=== PATIENT | female | born 1980 | race Caucasian/White ===

== ENCOUNTER 2019-02-10 19:38 | Emergency (ER) | payer MEDICAID, SELFPAY ==
[2019-02-10 19:39] VITALS: BP 131/81; PULSE 78; RESP 16; TEMP 37.2; O2SAT 98; BMI 28.8
--- NOTE | 2019-02-10 20:45 | ED.VISSUMM ---
- ER Visit Summary Date of Service: 02/10/19 Chief Complaint: Cat bites and scratches History of Present Illness: The patient is a 38 F who states that her cat went crazy when it saw a dog outside. She states that she tried to good control of it and it bit her and scratched her numerous time on the left arm forearm and hand. She notes particularly bad cat bite the anterior aspect of the mid forearm. Tetanus is unknown. Shots are up-to-date Physical Examination: Afebrile vital signs stable Gen: Well-nourished well-developed Head: Normocephalic atraumatic Eyes: Perrl EOMI ENT: TMs clear no rhinorrhea moist mucous membranes Neck: Supple no lymphadenopathy no JVD nontender CVS: Regular rate rhythm no murmurs normal S1-S2 Respiratory: No distress clear to auscultation bilaterally chest nontender Abdomen: Soft nontender nondistended normal bowel sounds no masses Back: Nontender Extremity: There are numerous superficial scratches as well as some small bite clemons particularly on the anterior mid forearm. None of these are gaping. No active bleeding. Skin: Normal color no rash Neuro: alert orientated ?3 CN II-XII intact normal strength sensation reflexes gait cerebellar Psych: Normal affect normal mood Test Results: Forearm films demonstrated no obvious foreign body Emergency Department Course and Treatment: Tetanus was updated with Adaalessandro. Wounds were cleansed and dressed. Patient was advised of the high risk of infection and will place her on Augmentin. Return if worsening or concerns. Given the location of the injuries and the fact that none of them are gaping and the extremely high risk of infection I do not feel that it would be appropriate to suture them. Impression: 1. Multiple cat bites and scratches 2. Tetanus update This note was generated with [employer] dictation software. It may contain incorrect words, spelling, and punctuation that were not noted in review of the chart prior to signing ED Disposition - Plan for ED Patient: Disposition: Home or Assisted Living Instructions: ED Bite Cat Prescriptions: Amox/Clavulanate Tablet [Augmentin Tablet] 875 mg PO Q12H #10 tab Referrals: Naun Azeevdo MD [Primary Care Provider] - 1 Week if not improving
--- NOTE | 2019-02-10 20:46 | RAD_ITS ---
STUDY: X-RAY - LEFT RADIUS AND ULNA REASON FOR EXAM: Female, 38 years old. Pain TECHNIQUE: 2 view(s) of the forearm. COMPARISON: None. FINDINGS: There is no demonstrated soft tissue swelling. Normal visualized radius. Normal visualized ulna. RAD/Forearm 2 Views IMPRESSION: Normal x-ray examination of the radius and ulna. Electronically Signed: Adria La MD at 21:31 EDT , Service support ,
[2019-02-10] MEDS: Diphth,Pertuss(Acell),Tet Vac 0.5 ML Vial IM (21:19)
[2019-02-10] MEDS: Amox/Clavulanate 875 MG Tablet PO (21:20)
[2019-02-10 22:23] VITALS: PULSE 75; RESP 16
== END 2019-02-10 22:25 | disposition home or self-care (01) ==
PROVIDERS: Emergency Provider Emergency Medicine; Family Provider Family Medicine; PCP Family Medicine
DX: S50.872A Other superficial bite of left forearm, initial encounter (principal); S60.572A Other superficial bite of hand of left hand, initial encounter; S50.812A Abrasion of left forearm, initial encounter; S60.512A Abrasion of left hand, initial encounter; W55.01XA Bitten by cat, initial encounter; Y93.89 Activity, other specified; Y92.9 Unspecified place or not applicable
CPT/HCPCS: 73090; 90715; 99282; A4216

== ENCOUNTER 2025-06-15 19:18 | Emergency (ER) | payer MEDICAID, SELFPAY ==
[2025-06-15 19:19] VITALS: BP 137/93; PULSE 88; RESP 16; TEMP 37.2; O2SAT 100
[2025-06-15 19:37] VITALS: BP 151/113; PULSE 91; RESP 18; TEMP 36.8; O2SAT 100; BMI 29.1
--- OUTSIDE RECORDS SUMMARY | 2025-06-15 20:22 | XMS RPT_ITS | CCD ---
Author Organization [facility] Care Team Providers Care Technical Services Representative Name Role Phone Luca Azevedo MD Primary Care Provider [phone] David hCiang (Hist) Primary Care Provider Mikie Elaine Primary Care Provider Luca Azevedo MD Primary Care Provider Unavailable Primary Care Provider Unavailabl e Unavailable Primary Care Provider Unavailabl e Luca Azevedo MD Primary Care Provider HANNAH FRAGOSO Attending Unavailable HANNAH FRAGOSO Attending Unavailable SELF Referring Unavailable Allergies Allergy Classification Reported Allergen(s) Allergy Type Date of Onset Reaction(s) Facility (16 sources) Cefaclor; Translations: [CEFACLOR] Drug Allergy 01-03-2006 [facility] Work Phone: (6 sources) artificial strawberry flavoring [Other] Propensity to adverse reactions 02-10-2011 [facility] Medications Current Medications Medication Drug Class(es) Dates Sig (Normalized) Sig (Original) acetaminophen 325 mg oral tablet (1 source) Start: 12-21-2023 End: 12-28-2023 take 325-650 mg by mouth every four hours as needed acetaminophen (TYLENOL) 325 mg tablet Take 1-2 tablets by mouth every 4 hours as needed for pain for up to 7 days. 30 tablet 0 12/21/2023 12/28/2023 Active Comment on above: Take 1-2 tablets by mouth every 4 hours as needed for pain for up to 7 days. amoxicillin 500 mg oral capsule (3 sources) Penicillin-class Antibacterial Start: 05-24-2024 End: 06-03-2024 take 1 capsule by mouth twice daily amoxicillin (AMOXIL) 500 mg capsule Take 1 capsule by mouth two times a day for 10 days. 20 capsule 0 05/24/2024 06/03/2024 Active Start: 12-21-2023 End: 12-28-2023 take 1 tablet by mouth twice daily amoxicillin (AMOXIL) 875 mg tablet Take 1 tablet by mouth two times a day for 7 days. 14 tablet 0 12/21/2023 12/28/2023 Active Comment on above: Take 1 tablet by abby th two times a day for 7 days. metroNIDAZOLE 0.0075 mg/mg vaginal gel (4 sources) Nitroimidazole Antimicrobial Start: 05-07-2025 End: 05-12-2025 metroNIDAZOLE (METROGEL) 0.75 % (37.5mg/5 gram) vaginal gel Indications: Bacterial vaginosis Use 1 applicatorful vaginally daily at bedtime for 5 days. 70 g 05/07/2025 05/12/2025 Active Start: 02-04-2025 End: 02-11-2025 take 1 tablet by mouth twice daily metroNIDAZOLE (FLAGYL) 500 mg tablet Take 1 tablet by mouth two times a day for 7 days. 14 tablet 02/04/2025 02/11/2025 Start: 05-25-2024 End: 06-01-2024 take 1 tablet by mouth twice daily metroNIDAZOLE (FLAGYL) 500 mg tablet Take 1 tablet by mouth two times a day for 7 days. 14 tablet 0 05/25/2024 06/01/2024 Active Start: 08-14-2023 End: 08-21-2023 take 1 tablet by mouth twice daily metroNIDAZOLE (FLAGYL) 500 mg tablet Take 1 tablet by mouth two times a day for 7 days. 14 tablet 0 08/14/2023 08/21/2023 Active Comment on above: Take 1 tablet by abby th two times a day for 7 days. naproxen 500 mg oral tablet (2 sources) Nonsteroidal Anti-inflammatory Drug Start: 12-21-2023 End: 01-04-2024 take 1 tablet by mouth every twelve hours as needed naproxen (NAPROSYN) 500 mg tablet Take 1 tablet by mouth two times a day as needed for pain for up to 14 days. 28 tablet 0 12/21/2023 01/04/2024 Active Start: 08-10-2017 End: 01-14-2022 take 1 tablet by mouth twice daily as needed for pain naproxen (NAPROSYN) 500 mg tablet Indications: Acute pain of right knee Take 1 tablet by mouth twice daily as needed (for pain/inflammation). Take with food. 30 tablet 08/10/2017 01/14/2022 Discontinued (Course of therapy completed) Comment on above: Take 1 tablet by abby th two times a day as needed for pain for up to 14 days. nitrofurantoin, macrocrystals 25 mg / nitrofurantoin, monohydrate 75 mg oral capsule (2 sources) Nitrofuran Antibacterial Start: 05-24-20 End: 05-29-20 take 1 capsule by mouth twice daily nitrofurantoin monohydrate and macrocrystal (MACROBID) 100 mg capsule Take 1 capsule by mouth two times a day for 5 days. 10 capsule 0 05/24/2024 05/29/2024 Active Completed/Discontinued Medications Medication Drug Class(es) Dates Sig (Normalized) Sig (Original) albuterol 0.83 mg/ml inhalation solution (5 sources) beta2-Adrenergic Agonist Start: 08-16-2018 End: 08-11-2023 take 2.5 mg by inhalation every four hours as needed for wheezing and wheezing albuterol (PROVENTIL) 2.5 mg /3 mL (0.083 %) nebulizer solution Indications: Wheezing Use 3 mL via nebulizer every 4 hours as needed for Wheezing/Shortness of Breath. Use over 5-15minutes. 1 Package 08/16/2018 08/11/2023 Discontinued Comment on above: Use 3 mL via nebuliz er every 4 hours as needed for Wheezing/Shortness of Breath. Use over 5-15minutes. lidocaine hydrochloride 20 mg/ml mucous membrane topical solution (4 sources) Antiarrhythmic, Amide Local Anesthetic Start: 10-23-2023 End: 02-03-2025 LIDOCAINE VISCOUS 2 % solution Indications: Ulcers aphthous oral Take 5 mL by mouth four times a day as needed for pain. 100 mL 10/23/2023 02/03/2025 Discontinued (Course of therapy completed) Comment on above: Take 5 mL by mouth f our times a day as needed for pain. Problems Active Problems Problem Classification Problem Date Documented Date Episodic/Chronic Asthma (15 sources) Mild intermittent asthma; Translations: [Mild intermittent asthma, uncomplicated] Onset: 09-28-2010 09-28-2010 Chronic Disorders of teeth and jaw (1 source) Infection of tooth; Translations: [Periapical abscess without sinus] 12-21-2023 Episodic Genitourinary symptoms and ill-defined conditions (1 source) Scalding pain on urination ; Translations: [Dysuria] 05-24-2024 Episodic Immunizations and screening for infectious disease (5 sources) Patient encounter status; Translations: [Encounter for screening for human papillomavirus (HPV)] Onset: 05-06-2025 Episodic Inflammatory diseases of female pelvic organs (1 source) Bacterial vaginosis; Translations: [Acute vaginitis] 05-07-2025 Episodic Mood disorders (15 sources) Premenstrual dysphoric disorder; Translations: [Premenstrual dysphoric disorder] Onset: 10-10-2016 10-10-2016 Chronic Other female genital disorders (3 sources) Vaginal discharge; Translations: [Other specified noninflammatory disorders of vagina] Episodic Other female genital disorders (2 sources) Vaginal odor; Translations: [Other specified noninflammatory disorders of vagina] Episodic Other female genital disorders (1 source) Vaginal irritation; Translations: [Other specified noninflammatory disorders of vagina] 08-11-2023 Episodic Other female genital disorders (1 source) Other specified noninflammatory disorders of vagina; Translations: [Vaginal discharge] Onset: 05-06-2025 Episodic Other non-traumatic joint disorders (1 source) Ankle pain; Translations: [Pain in right ankle and joints of right foot] 01-14-2022 Episodic Other screening for suspected conditions (not mental disorders or infectious disease) (1 source) Cancer cervix screening status; Translations: [Encounter for screening for malignant neoplasm of cervix] Episodic Other upper respiratory infections (2 sources) Sore throat symptom; Translations: [Acute pharyngitis, unspecified] 05-24-2024 Episodic Past or Other Problems Problem Classification Problem Date Documented Date Episodic/Chronic Abdominal pain (16 sources) Pain in female pelvis; Translations: [Pelvic and perineal pain] Onset: 10-10-2016 Episodic Biliary tract disease (8 sources) Gallstone; Translations: [Calculus of gallbladder without cholecystitis without obstruction] Onset: 06-24-2011 Resolved: 10-10-2016 10-10-2016 Episodic Hemorrhoids (15 sources) Hemorrhoids; Translations: [Other hemorrhoids] Onset: 12-02-2019 12-02-2019 Episodic Other complications of (8 sources) Supervision of other high risk pregnancies, unspecified trimester; Translations: [Supervision of other high-risk ] Onset: 07-01-2010 Resolved: 10-10-2016 10-10-2016 Episodic Other complications of (8 sources) Mild hyperemesis gravidarum; Translations: [Mild hyperemesis gravidarum] Onset: 07-01-2010 Resolved: 10-10-2016 10-10-2016 Episodic Other and delivery including normal (8 sources) Normal ; Translations: [Encounter for supervision of other normal , unspecified trimester] Onset: 01-17-2006 Resolved: 07-01-2010 07-01-2010 Episodic Results Test Name Value Interpretation Reference Range Facil ity BACTERIAL VAGINOSIS NAATon 0 05-06-2025 Lactobacillus crispatus+gasseri+j ensenii + Gardnerella vaginalis + Atopobium vaginae rRNA TIGRE+probe Ql (Vag fld) Detected Abnormal Not detected [facility] Comment on above: Order Comment: Speci men Type: SWAB Ordering Facility: [facility] Address: [address] [place] [address] Performed By: #### Jona SINGH, [id number] #### [facility] CLIA [id number] [address] [place] [address] [place] C. trachomatis+N. gonorrhoea e DNA TIGRE+probe Ql (Unsp spec)on 05-06-2025 C. trachomatis rRNA TIGRE+probe Ql (Unsp spec) Not detected Normal Not detected [facility] Comment on above: Order Comment: Speci men Type: SWAB Ordering Facility: [facility] Address: [address] [place] [address] Performed By: #### Jona SINGH, [id number] #### [facility] CLIA [id number] [address] [place] [address] [place] N. gonorrhoeae rRNA TIGRE+probe Ql (Unsp spec) Not detected Normal Not detected [facility] Comment on above: Order Comment: Speci men Type: SWAB Ordering Facility: [facility] Address: [address] [place] [address] Performed By: #### B SAMANTHA, [id number] #### [facility] CLIA [id number] [address] [place] [address] [place] CATHY/TRICHOMONAS NAATon 0 05-06-2025 C. glabrata RNA TIGRE+probe Ql (Vag fld) Not detected Normal Not detected [facility] Comment on above: Order Comment: Speci men Type: SWAB Ordering Facility: [facility] Address: [address] [place] [address] Performed By: #### C VTV #### [facility] CLIA [id number] [address] [place] [address] [place] Cathy sp DNA TIGRE+probe Ql (Vag fld) Not detected Normal Not detected [facility] Comment on above: Order Comment: Speci men Type: SWAB Ordering Facility: [facility] Address: [address] [place] [address] Result Comment: The Cathy species group target includes C. albicans, C. tropicalis, C. parapsilosis, and C. dubliniensis. Performed By: #### C VTV #### [facility] CLIA [id number] [address] [place] [address] [place] T. vaginalis DNA TIGRE+probe Ql (Unsp spec) Not detected Normal Not detected [facility] Comment on above: Order Comment: Speci men Type: SWAB Ordering Facility: [facility] Address: [address] [place] [address] Performed By: #### C VTV #### [facility] CLIA [id number] [address] [place] [address] [place] CNOVon 05-06-2025 CNOV Office Visit (OBGYWM ) RATNA DAVIES ([id number]) 1980 F Date Time Provider Department 05/06/25 2:45 PM HANNAH FRAGOSO OBGYWM During your visit today, we recorded the following information about you: Blood pressure Weight Last Period 124/78 73.9 kg 04/06/25 Hannha Fragoso APRN.COMMUNICATIONS TECHNOLOGIST 05/06/2025 4:17 PM Signed Patient declined boiler blower. 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 Patient/authorized technical services representative agreed to proceed CHIEF COMPLAINT: The patient is a 44-year-old female presenting for evaluation of vaginal discharge and concerns about potential STIs. HPI: Vaginal Discharge and STI Concerns - Reports recurrent vaginal discharge for the past two weeks, which she believes is a recurrence of a previous infection treated in March. - Unable to complete the full course of antibiotics for the previous infection due to being kicked out of her house and not having access to her medication. - Engaging in sexual activity with multiple partners, expressing difficulty in maintaining celibacy. - Desires STI testing to ensure she is clean. Living Situation and Stress - Currently homeless and on a waiting list for emergency housing for the past two months. - Expresses significant stress and emotional distress due to her living situation, stating, I don't want to do this life anymore, it's not good. - Reports difficulty in accessing basic needs such as food and mcfp, relying on others for support. HISTORY: OB History Gravida3 Para3 Term3 Preterm0 AB0 Living3 SAB0 IAB0 Ectopic0 Multiple0 Live Births2 Manager Hris History LMP: 04/06/2025 (Exact Date), Having periods Age at Menarche: 18 Age at First : Age at Menopause: Manager Hris History Comments: Sexual Activity: Yes; Male; Essure Contraception: Surgical Menstrual Tracking History Flowsheet Row Office Visit from 02/03/2025 in OB/Gynecology Period Duration (Days) 5 Menstrual Flow Moderate PAST MEDICAL HISTORY Diagnosis Date Dysplastic colon polyp Intrinsic asthma, unspecified PAST SURGICAL HISTORY Procedure Laterality Date COLONOSCOPY FLX DX W/COLLJ SPEC WHEN PFRMD N/A 01/06/2017 COLONOSCOPY FLX DX W/COLLJ SPEC WHEN PFRMD 12/03/2019 Colonoscopy ESOPHAGOGASTRODUODENO SCOPY TRANSORAL DIAGNOSTIC N/A 01/06/2017 EUA 12/04/2019 HEMORRHOIDECTOMY 12/04/2019 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 09/04/09 Mirena LAPAROSCOPIC TUBAL LIGATION/RING/CLIP 05/04/11 LAPS SURG CHOLECYSTECTOMY W/CHOLANGIOGRAPHY 06/28/11 normal IOC FAMILY HISTORY Problem Relation Age of Onset Thyroid Mother Asthma Mother Alcohol/Drug Mother Alcohol/Drug Father Diabetes Father Psychiatry Father Blood Disease Father Hepatitis C Asthma Father Asthma Brother Alcohol abuse Brother Social History Tobacco Use Smoking status: Former Current packs/day: 0.00 Types: Cigarettes Quit date: 09/06/2003 Years since quittin.6 Smokeless tobacco: Never Vaping Use Vaping status: current everyday user Substances: Nicotine Substance Use Topics Alcohol use: Yes Comment: Seldom No current outpatient medications on file. No current facility-administered medications for this visit. ALLERGIES Allergen Reactions Ceclor [Cefaclor] Rash REVIEW OF SYSTEMS: Gastrointestinal: (+) abdominal cramping Genitourinary: (+) vaginal discharge Psychiatric: (+) emotional lability Objective SENSITIVE EXAM: The sensitive examination was discussed with the Patient or Patient's Authorized Numberer And Wirer. As applicable, any other physician, advance practice provider, medical student, or other health professional student that will be observing or involved in the sensitive examination for educational or training purposes was discussed with the Patient or Authorized Numberer And Wirer. The Patient or Authorized Numberer And Wirer has agreed to proceed with the sensitive examination. (Sensitive examination includes inspection and/or palpation of the breasts, pelvis, prostate and anorectal regions). PHYSICAL EXAM: BP 124/78 Wt 163 lb (73.9kg) LMP 04/06/2025 GENERAL: Pleasant; no acute distress PULMONARY: normal inspiratory effort : - PELVIC: external genitalia normal, normal Bartholin's glands, urethra, Wyboo's glands, no vulvar lesions, no cervical lesions, good vaginal support, physiologic discharge present, normal appearing perineal body and perianal region, cold speculum exam performed - Patient consent for exam received NEURO: alert and oriented x3 EXTREMITIES: normal Assessment AND Plan ASSESSMENT AND PLAN: 1. Screen for STD (sexually transmitted disease) (Z11.3) - Performed STD screening; results expected by tomorrow. 2. Vaginal discharge (N89.8) - R (more content not included)... Normal [facility] BACTERIAL VAGINOSIS NAATon 0 02-03-2025 Lactobacillus crispatus+gasseri+j ensenii + Gardnerella vaginalis + Atopobium vaginae rRNA TIGRE+probe Ql (Vag fld) Detected Abnormal Not detected [facility] Comment on above: Order Comment: Speci men Type: SWAB Ordering Facility: [facility] Address: [address] [place] [address] Performed By: #### C VTV, BVAMP #### [facility] CLIA [id number] [address] [place] [address] [place] C. trachomatis+N. gonorrhoea e DNA TIGRE+probe Ql (Unsp spec)on 02-03-2025 C. trachomatis rRNA TIGRE+probe Ql (Unsp spec) Not detected Normal Not detected [facility] Comment on above: Order Comment: Speci men Type: SWAB Ordering Facility: [facility] Address: [address] [place] [address] Performed By: #### 3 [id number] #### [facility] CLIA [id number] [address] [place] [address] [place] N. gonorrhoeae rRNA TIGRE+probe Ql (Unsp spec) Not detected Normal Not detected [facility] Comment on above: Order Comment: Speci men Type: SWAB Ordering Facility: [facility] Address: [address] [place] [address] Performed By: #### 3 [id number] #### [facility] CLIA [id number] [address] [place] [address] [place] CATHY/TRICHOMONAS NAATon 0 02-03-2025 C. glabrata RNA TIGRE+probe Ql (Vag fld) Not detected Normal Not detected [facility] Comment on above: Order Comment: Speci men Type: SWAB Ordering Facility: [facility] Address: [address] [place], [place] [id number] Performed By: #### C VTV, BVAMP #### [facility] CLIA [id number] [address] [place] [address] [place] Cathy sp DNA TIGRE+probe Ql (Vag fld) Not detected Normal Not detected [facility] Comment on above: Order Comment: Speci men Type: SWAB Ordering Facility: [facility] Address: [address] [place] [address] Result Comment: The Cathy species group target includes C. albicans, C. tropicalis, C. parapsilosis, and C. dubliniensis. Performed By: #### C VTV, BVAMP #### [facility] CLIA [id number] [address] [place] [address] [place] T. vaginalis DNA TIGRE+probe Ql (Unsp spec) Not detected Normal Not detected [facility] Comment on above: Order Comment: Speci men Type: SWAB Ordering Facility: [facility] Address: [address] [place] [address] Performed By: #### C VTV, BVAMP #### [facility] CLIA [id number] [address] [place] [address] [place] CNOVon 02-03-2025 CNOV Office Visit (OBGYWM ) RATNA DAVIES ([id number]) 1980 F Date Time Provider Department 02/03/25 11:30 AM HANNAH FRAGOSO OBGYWM During your visit today, we recorded the following information about you: Blood pressure Weight Last Period 128/70 69.8 kg 01/20/25 Hannah Fragoso APRN.COMMUNICATIONS TECHNOLOGIST 02/03/2025 12:09 PM Signed Patient declined boiler blower. Ratna Davies is a 44 year old female who presents for problem visit vaginal discharge, odor. HPI: pt states that she the discharge and odor for the past 1-2 wks. Denies any burning or irritation. OB History Gravida3 Para3 Term3 Preterm0 AB0 Living3 SAB0 IAB0 Ectopic0 Multiple0 Live Births2 Manager Hris History LMP: 01/20/2025 (Exact Date), Having periods Age at Menarche: 18 Age at First : Age at Menopause: Manager Hris History Comments: Sexual Activity: Yes; Male; Essure Contraception: Surgical Menstrual Tracking History Flowsheet Row Office Visit from 02/03/2025 in OB/Gynecology Period Duration (Days) 5 Menstrual Flow Moderate PAST MEDICAL HISTORY Diagnosis Date Dysplastic colon polyp Intrinsic asthma, unspecified PAST SURGICAL HISTORY Procedure Laterality Date COLONOSCOPY FLX DX W/COLLJ SPEC WHEN PFRMD N/A 01/06/2017 COLONOSCOPY FLX DX W/COLLJ SPEC WHEN PFRMD 12/03/2019 Colonoscopy ESOPHAGOGASTRODUODENO SCOPY TRANSORAL DIAGNOSTIC N/A 01/06/2017 EUA 12/04/2019 HEMORRHOIDECTOMY 12/04/2019 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 09/04/09 Mirena LAPAROSCOPIC TUBAL LIGATION/RING/CLIP 05/04/11 LAPS SURG CHOLECYSTECTOMY W/CHOLANGIOGRAPHY 06/28/11 normal C FAMILY HISTORY Problem Relation Age of Onset Thyroid Mother Asthma Mother Alcohol/Drug Mother Alcohol/Drug Father Diabetes Father Psychiatry Father Blood Disease Father Hepatitis C Asthma Father Asthma Brother Alcohol abuse Brother Social History Tobacco Use Smoking status: Former Current packs/day: 0.00 Types: Cigarettes Quit date: 09/06/2003 Years since quittin.4 Smokeless tobacco: Never Vaping Use Vaping status: current everyday user Substances: Nicotine Substance Use Topics Alcohol use: Yes Comment: Seldom Current Outpatient Medications Medication Sig LIDOCAINE VISCOUS 2 % solution Take 5 mL by mouth four times a day as needed for pain. (Patient not taking: Reported on 12/21/2023) No current facility-administered medications for this visit. Allergies As of Date: 02/03/2025 Allergen Noted Reaction CECLOR [CEFACLOR] 01/03/2006 Rash Fully Assessed 02/03/2025 REVIEW OF SYSTEMS Bladder: No dysuria, gross hematuria, urinary frequency, urinary urgency, or incontinence. Expanded ROS: N/A Allergies and current medication updated:Yes SENSITIVE EXAM: The sensitive examination was discussed with the Patient or Patient's Authorized Numberer And Wirer. As applicable, any other physician, advance practice provider, medical student, or other health professional student that will be observing or involved in the sensitive examination for educational or training purposes was discussed with the Patient or Authorized Numberer And Wirer. The Patient or Authorized Numberer And Wirer has agreed to proceed with the sensitive examination. (Sensitive examination includes inspection and/or palpation of the breasts, pelvis, prostate and anorectal regions). EXAM: BP 128/70 Wt 153 lb 12.8 oz (69.8kg) LMP 01/20/2025 GENERAL: pleasant, female in no apparent distress HEENT: Normocephalic, atraumatic, mucus membranes moist, and no lesions CHEST: Normal inspiratory effort PELVIC: external genitalia normal, normal Bartholin's glands, urethra, Wyboo's glands, no vulvar lesions, no cervical lesions, good vaginal support, physiologic discharge present, normal appearing perineal body and perianal region BIMANUAL: deferred NEURO: alert and oriented x3,exam grossly non-focal EXTREMITIES: normal ASSESSMENT AND PLAN: Assessment AND Plan Vaginal discharge Orders: CATHY/TRICHOMONAS NAAT BACTERIAL VAGINOSIS NAAT GONORRHEA/CHLAMYDIA NAAT Vaginal odor Orders: BACTERIAL VAGINOSIS NAAT GONORRHEA/CHLAMYDIA NAAT Will notify patient of test results. Hannah Fragoso APRN.[facility] Medical Decision Making: Problems: Moderate: New problem with uncertain prognosis Data: Unique test(s) ordered: 3+ Risk: Low: Low risk from testing/treatment Medical Decision Making Level: 4 - Moderate Allergies As of Date: 02/03/2025 Noted Allergy Reaction CECLOR (CEFACLOR) 01/03/2006 2 - Rash Date Reviewed: 02/03/2025 Reviewed by: Janice Ogden LPN - Fully Assessed Reason for Visit: Problem Visit [Other] Primary Visit Diagnosis:Vaginal discharge [N89.8] Other Visit Diagnosis:Vaginal odor [N89.8] Order(s):CATHY/TRIC HOMONAS NAAT [SQCVTV] Order #: [id number] BACTERIAL VAGINOSIS NAAT [SQBVAMP] Order #: [id number] GONORRHEA/CHLAMYDIA NAAT [SQGCCT] Order #: [id number] Prob (more content not included)... [facility] C[facility]N Tele[facility] ([facility]) RATNA DAVIES ([id number]) 1980 F Date Time Provider Department 05/25/24 TRENT HOOPER [facility] [[email or web address] During your visit today, we recorded the following information about you: Trent Hooper APRN.COMMUNICATIONS TECHNOLOGIST 05/25/2024 9:19 AM Signed Patient is positive for trichomonas and bacterial vaginosis. Antibiotics were called in twice a day for 7 days called [facility]. Patient needs to complete the 7 days. Patient should not drink alcohol on the medication. Patient was negative for gonorrhea, chlamydia, yeast. Patient should notify all partners as trichomonas is an STD. Cande Chang MA 05/25/2024 9:55 AM Signed Attempted to call pt, phone number is no longer in service. Not sure how to get a hold of pt, pt is homeless at this time. Will try number again later to see if it is back in order. JOSI Faye Melissa, MA 05/26/2024 1:05 PM Signed Called pharmacy and she has not picked up medication and they have same phone number on file. JOSI Ross Brandi, LPN 05/28/2024 8:27 AM Signed 05/27/24 2:30 pm Pt viewed results and note from DIETETIC ASSISTANT on my chart. Kirsty Pereira LPN Allergies As of Date: 05/25/2024 Noted Allergy Reaction CECLOR (CEFACLOR) 01/03/2006 2 - Rash Date Reviewed: 05/24/2024 Reviewed by: Alyssa Blakely MA - Fully Assessed Reason for Visit: Results [95] Orders [681] Order(s):metroNIDAZOL E (FLAGYL) 500 mg tabletTake 1 tablet by mouth two times a day for 7 days.Disp: 14 tabletRfl: 0 Prescriptions as of 05/28/2024 - metroNIDAZOLE (FLAGYL) 500 mg tablet Take 1 tablet by mouth two times a day for 7 days. - nitrofurantoin monohydrate and macrocrystal (MACROBID) 100 mg capsule Take 1 capsule by mouth two times a day for 5 days. - amoxicillin (AMOXIL) 500 mg capsule Take 1 capsule by mouth two times a day for 10 days. - LIDOCAINE VISCOUS 2 % solution Take 5 mL by mouth four times a day as needed for pain. Problem List As Of Date 05/25/2024 Noted Resolved Supervision of Other Normal [Z34.80] 01/17/2006 07/01/2010 Supervision of other high-risk (V23.89*06/0710/10/2016 Mild hyperemesis gravidarum, antepartum [O21.0] 07/01/2010 10/10/2016 Asthma, mild intermittent [J45.20] 09/28/2010 Calculus of gallbladder without mention of chol*06/24/2011 10/10/2016 Chronic pelvic pain in female [R10.2, G89.29] 10/10/2016 PMDD (premenstrual dysphoric disorder) [F32.81] 10/10/2016 Other hemorrhoids [K64.8] 12/02/2019 Prescriptions ordered this encounter Disp Refills Start End METRONIDAZOLE 500 MG TABLET 14 t* 0 05/25/2024 06/01/2024 Route: ORAL Sig: Take 1 tablet by mouth two times a day for 7 days. Encounter Status:Closed by KIRSTY PEREIRA on 05/28/24 Normal [facility] BACTERIAL VAGINOSIS NAATon 0 05-24-2024 Lactobacillus crispatus+gasseri+j ensenii + Gardnerella vaginalis + Atopobium vaginae rRNA TIGRE+probe Ql (Vag fld) Positive Abnormal Negative for bacterial vaginosis [facility] Comment on above: Order Comment: Speci men Type: SWAB Ordering Facility: [facility] Address: [address] [place] [address] Performed By: #### B SAMANTHA, [id number] #### [facility] CLIA [id number] [address] [place] [address] [place] [address] [place] Bacteria Ur Culton 4 Bacteria identified Cx Nom (U) ORGANISM ID: 1 >=100,000 CFU/ml Escherichia coli ORGANISM ID: 1 (ESCHERICHIA COLI) ------ ANTIBIOTIC INTERPRETATION ANGEL STATUS REFERENCE RANGE ------ Ampicillin S <=2 F Susceptible <=8 , Intermediate >8 , Resistant >16 Cefazolin S <=4 F Susceptible 0-16 , Intermediate <0 or >16 , Resistant >16 For uncomplicated urinary tract infections, cefazolin results can be used to predict susceptibility or resistance to cephalexin. Ceftriaxone S <=1 F Susceptible <=1 , Intermediate >1 , Resistant >=4 Cefepime S <=1 F Susceptible <=2 , Susceptible-Dose Dependent >2 , Resistant >=16 Ertapenem S <=0.5 F Susceptible <=0.5 , Intermediate >.5 , Resistant >1 Meropenem S <=0.25 F Susceptible <=1 , Intermediate >1 , Resistant >2 Ampicillin/Sulbact S <=2 F Susceptible <=8 , Intermediate >8 , Resistant >16 Piperacillin/Tazobac S <=4 F Susceptible <16 , Susceptible-Dose Dependent >=16 , Resistant >=32 Gentamicin S <=1 F Susceptible <=2 , Intermediate >2 , Resistant >=8 Tobramycin S <=1 F Susceptible <4 , Intermediate >=4 , Resistant >=8 Trimeth sulfameth S <=20 F Susceptible <=40 , Resistant >40 Ciprofloxacin S <=0.25 F Susceptible <0.5 , Intermediate >=.5 , Resistant >=1 Nitrofurantoin S <=16 F Susceptible <=32 , Intermediate >32 , Resistant >64 Abnormal [facility] Comment on above: Performed By: #### B VAMP, [id number] #### [facility] CLIA [id number] [address] [place] [address] [place] C. trachomatis+N. gonorrhoea e DNA TIGRE+probe Ql (Unsp spec)on 05-24-2024 C. trachomatis rRNA TIGRE+probe Ql (Unsp spec) Negative Normal Negative for Chlamydia trachomatis by amplificaton [facility] Comment on above: Order Comment: Speci men Type: SWAB Ordering Facility: [facility] Address: [address] [place] [address] Performed By: #### B VAMP, [id number] #### [facility] CLIA [id number] [address] [place] [address] [place] N. gonorrhoeae rRNA TIGRE+probe Ql (Unsp spec) Negative Normal Negative for Neisseria gonorrhoeae by amplification [facility] Comment on above: Order Comment: Speci men Type: SWAB Ordering Facility: [facility] Address: [address] [place] [address] Performed By: #### B VAMP, [id number] #### [facility] CLIA [id number] [address] [place] [address] [place] CATHY/TRICHOMONAS NAATon 0 05-24-2024 C. glabrata RNA TIGRE+probe Ql (Vag fld) Negative Normal Negative for Cathy glabrata [facility] Comment on above: Order Comment: Speci men Type: SWAB Ordering Facility: [facility] Address: [address] [place] [address] Performed By: #### C VTV #### [facility] CLIA [id number] [address] [place] [address] [place] Cathy sp DNA TIGRE+probe Ql (Vag fld) Negative Normal Negative for Cathy species [facility] Comment on above: Order Comment: Speci men Type: SWAB Ordering Facility: [facility] Address: [address] [place] [address] Performed By: #### C VTV #### [facility] CLIA [id number] [address] [place] [address] [place] T. vaginalis DNA TIGRE+probe Ql (Unsp spec) Positive Abnormal Negative for Trichomonas vaginalis by amplification [facility] Comment on above: Order Comment: Speci men Type: SWAB Ordering Facility: [facility] Address: [address] [place] [address] Performed By: #### C VTV #### [facility] CLIA [id number] [address] [place] [address] [place] CNOVon 05-24-2024 CNOV Office Visit (UCWSTR ) RATNA DAVIES ([id number]) 1980 F Date Time Provider Department 05/24/24 6:00 PM MICHI WELLS [facility] [[email or web address]] During your visit today, we recorded the following information about you: Temperature Pulse Respiration Blood pressure 98.7 degrees 104/minute 16/minute 122/72 Weight 66.1 kg Michi Wells PA 05/24/2024 6:41 PM Signed This note was created using [employer]. Subjective Ratna Davies is a 43 year old female. HPI 43-year-old female presents for multiple complaints. Patient states she has been having burning with urination, suprapubic pressure on and off for couple of months. She states that she is concerned she may have a UTI. She has been taking Azo [id number] which has helped subside symptoms, but this week symptoms got worse. Patient does report she is homeless, is difficult for her to get a ride to the doctor's office. She denies any fevers, abdominal pain, back pain, vomiting or diarrhea. She does report urinary urgency, frequency, suprapubic pressure and burning with urination. Patient has had a little bit of vaginal discharge. No vaginal itching or vaginal pain. No new rash. Patient states that she would like tested for STDs as well. She states that she has been having vaginal intercourse with a new partner and has also been having oral sex with a different partner. No concern for . Patient states that she has had a sore throat for the past week or so. She states that she was exposed to strep. She is also concerned about possible STD in the throat as noted above. No fevers. She has had a little bit of runny nose. No cough. No chest pain or shortness of breath. Still able to eat and drink. No other complaint. 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 LIDOCAINE VISCOUS 2 % solution Take 5 mL by mouth four times a day as needed for pain. (Patient not taking: Reported on 12/21/2023) FAMILY HISTORY Problem Relation Age of Onset Thyroid Mother Asthma Mother Alcohol/Drug Mother Alcohol/Drug Father Diabetes Father Psychiatry Father Blood Disease Father Hepatitis C Asthma Father Asthma Brother Alcohol abuse Brother Social History Tobacco Use Smoking status: Former Types: Cigarettes Quit date: 09/06/2003 Years since quittin.7 Smokeless tobacco: Never Vaping Use Vaping Use: current everyday user Substances: Nicotine Substance Use Topics Alcohol use: Yes Comment: Seldom Review of Systems Constitutional: Negative for chills and fever. HENT: Positive for sore throat. Negative for congestion and ear pain. Respiratory: Negative for cough and shortness of breath. Cardiovascular: Negative for chest pain. Gastrointestinal: Negative for abdominal pain, diarrhea and vomiting. Genitourinary: Positive for dysuria, frequency, urgency and vaginal discharge. Negative for vaginal bleeding and vaginal pain. Objective BP 122/72 Pulse 104 Temp 37.1 ?C (98.7 ?F) Resp 16 Wt 66.1 kg (145 lb 11.6 oz) LMP 08/02/2023 SpO2 99% BMI 25.21 kg/m? Physical Exam Vitals and nursing note reviewed. Constitutional: General: She is not in acute distress. Appearance: Normal appearance. She is not toxic-appearing. HENT: Right Ear: Tympanic membrane and ear canal normal. Left Ear: Tympanic membrane and ear canal normal. Nose: Nose normal. Mouth/Throat: Mouth: Mucous membranes are moist. Pharynx: Uvula midline. Posterior oropharyngeal erythema present. Tonsils: No tonsillar exudate or tonsillar abscesses. 2+ on the right. 2+ on the left. Eyes: Conjunctiva/sclera: Conjunctivae normal. Cardiovascular: Rate and Rhythm: Normal rate and regular rhythm. Pulmonary: Effort: Pulmonary effort is normal. Breath sounds: Normal breath sounds. Genitourinary: Comments: Deferred by patient Skin: General: Skin is warm and dry. Neurological: Mental Status: She is alert. Assessment and Plan ASSESSMENT/PLAN: 1. Burning with urination - ICD9: 788.1, ICD10: R30.0 (primary diagnosis) acute - UA positive for fany esterase, hematuria, proteinuria, and nitrates. - On AZO - Send urine for culture - Begin treatment with Macrobid 100 mg BID for 5 days - Patient edu (more content not included)... Normal [facility] STREP A MOLECULAR (POC)on Interpretation and review of laboratory results Abnormal [facility] Procedural Control Valid [facility] Strep A (POCT) Positive Abnormal Negative [facility] UA DIP, URINE (POC)on 2023 BILIRUBIN UA (POCT) Moderate Abnormal Negative [facility] CLARITY UA (POCT) [facility] COLOR UA (POCT) [place] [facility] GLUCOSE UA (POCT) 250 mg/dL Abnormal Negative [facility] Hemoglobin Ql (U) Trace-intact Abnormal Negative [facility] Interpretation and review of laboratory results Abnormal [facility] KETONE UA (POCT) 15 mg/dL Abnormal Negative [facility] LEUKOCYTES UA (POCT) Large Abnormal Negative [facility] NITRITE UA (POCT) Positive Abnormal Negative [facility] PH UA (POCT) 5.0 4.5 - 8.0 [facility] Protein Ql (U) >=300 Abnormal Negative mg/dL [facility] SPECIFIC GRAVITY UA (POCT) 1.010 1.005 - 1.030 [facility] UROBILINOGEN UA (POCT) >=8.0 Abnormal Normal E.U./dL [facility] Location:[address], [place], [place], [id number] [place] [address] POINT OF CARE [facility] BACTERIAL VAGINOSIS NAATon 1 Lactobacillus crispatus+gasseri+j ensenii + Gardnerella vaginalis + Atopobium vaginae rRNA TIGRE+probe Ql (Vag fld) Positive Abnormal Negative for bacterial vaginosis [facility] C. trachomatis+N. gonorrhoea e DNA TIGRE+probe Ql (Unsp spec)on 08-11-2023 C. trachomatis rRNA TIGRE+probe Ql (Unsp spec) Negative Negative for Chlamydia trachomatis by amplificaton [facility] N. gonorrhoeae rRNA TIGRE+probe Ql (Unsp spec) Negative Negative for Neisseria gonorrhoeae by amplification [facility] CATHY/TRICHOMONAS NAATon 1 C. glabrata RNA TIGRE+probe Ql (Vag fld) Negative Negative for Cathy glabrata [facility] Cathy sp DNA TIGRE+probe Ql (Vag fld) Negative Negative for Cathy species [facility] T. vaginalis DNA TIGRE+probe Ql (Unsp spec) Negative Negative for Trichomonas vaginalis by amplification [facility] XR Ankle - right AP and Late ral and obliqueon 01-14-2022 IMPRESSION: 1. Unremarkable views of the right ankle. Inside B2B Sales: SUSAN Transcribe Date/Time: Jan 14 2022 4:02P Dictated by : EDDIE DE SANTIAGO MD This examination was interpreted and the report reviewed and electronically signed by: EDDIE DE SANTIAGO MD on Jan 14 2022 4:02PM EST DIVISION OF RADIOLOGY * * *Final Report* * * DATE OF EXAM: Jan 14 2022 3:58PM WOX [id number] - XR ANKLE 3V AP/LAT/OBL RT / PROCEDURE REASON: Right ankle pain, unspecified chronicity * * * * Physician Interpretation * * * * Exam: Right ankle series. Reason for exam: Pain. Findings: Three views of the right ankle are submitted for evaluation. There is no fracture or subluxation. No gross soft tissue abnormality is seen. The talar dome is normal. Bone density is maintained. DIVISION OF RADIOLOGY Provider, [facility] - 01/14/2022 * * *Final Report* * * DATE OF EXAM: Jan 14 2022 3:58PM WOX [id number] - XR ANKLE 3V AP/LAT/OBL RT / PROCEDURE REASON: Right ankle pain, unspecified chronicity * * * * Physician Interpretation * * * * Exam: Right ankle series. Reason for exam: Pain. Findings: Three views of the right ankle are submitted for evaluation. There is no fracture or subluxation. No gross soft tissue abnormality is seen. The talar dome is normal. Bone density is maintained. IMPRESSION IMPRESSION: 1. Unremarkable views of the right ankle. [facility] Transcribe Date/Time: Jan 14 2022 4:02P Dictated by : EDDIE DE SANTIAGO MD This examination was interpreted and the report reviewed and electronically signed by: EDDIE DE SANTIAGO MD on Jan 14 2022 4:02PM EST [facility] Radiology Study observation (narrative) [facility] XR Ankle - right AP and Late ral and obliqueOrdered By: Ccf Provider on 01-14-2022 [facility] ANES Henri 12-04-2019 ANES POST HNO ID: [id number] Author: Samuel Hdz Service: Anesthesiology Author Type: Anesthesiologist Type: Anesthesia PostOp Filed: 12/04/2019 2:42 PM Note Text: POST ANESTHESIA EVALUATION NOTE SERVICE DATE: 12/04/2019 SERVICE TIME: 2:42 PM : 1980 Vitals: 12/04/19 0952 12/04/19 1301 12/04/19 1400 12/04/19 1430 Temp: 36.2 ?C (97.2 ?F) 36.7 ?C (98.1 ?F) 36.3 ?C (97.3 ?F) 36.3 ?C (97.3 ?F) 12/04/19 1330 12/04/19 1345 12/04/19 1400 12/04/19 1430 BP: 110/69 113/71 114/75 130/75 12/04/19 1330 12/04/19 1345 12/04/19 1400 12/04/19 1430 Pulse: 65 64 (!) 56 78 12/04/19 1330 12/04/19 1345 12/04/19 1400 12/04/19 1430 Resp: 18 14 13 16 12/04/19 13312/04/19 1345 12/04/19 1400 12/04/19 1430 SpO2: 97% 96% 99% 96% Validated Vital Signs: Yes POST ANES STATUS: No apparent anesthetic complications. The patient is appropriately hydrated with stable respiratory and cardiovascular status. Patient has safe and adequate airway control. The patient has appropriate pain relief and no significant post operative nausea or vomiting. The patient has achieved baseline mental status. Further assessment by Anesthesia Service: None Other Remarks: SIGNATURE: Samuel Hdz MD PATIENT NAME: Ratna Davies DATE: December 04, 2019 TIME: 2:42 PM PAGER/CONTACT #: [phone] [facility] ANES PREOPon 12-04-2019 ANES PREOP HNO ID: [id number] Author: Samuel Hdz Service: Anesthesiology Author Type: Anesthesiologist Type: Anesthesia PreOp Filed: 12/04/2019 9:45 AM Note Text: ANESTHESIOLOGY DAY OF SURGERY NOTE SERVICE DATE: 12/04/2019 SERVICE TIME: 9:45 AM : 1980 Procedure(s) (LRB): EXAM UNDER ANESTHESIA RECTAL (N/A) HEMORRHOIDECTOMY EXTERNAL AND INTERNAL 2 OR MORE COLUMNS/GROUPS (N/A) Surgeon(s): Casi Vital Estimated body mass index is 31.96 kg/m? as calculated from the following: Height as of 12/02/19: 161.9 cm (5' 3.75). Weight as of 12/03/19: 83.8 kg (184 lb 11.9 oz). Most recent hematocrit and potassium results: Hematocrit 45.7 02/20/2015 Potassium 4.1 02/20/2015 ANES DOS/PREOP NOTE: Vitals: There were no vitals filed for this visit. 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 09/04/09 Mirena - LAP CHOLECYSTECT/CHOLANGI OGRAPHY 06/28/11 normal IOC - LAPAROSCOPIC TUBAL LIGATION/RING/CLIP 05/04/11 FAMILY HISTORY Problem Relation Age of Onset - Thyroid Mother - Asthma Mother - Alcohol/Drug Mother - Alcohol/Drug Father - Diabetes Father - Psychiatry Father - Blood Disease Father Hepatitis C - Asthma Father - Asthma Brother Social History: Social History Tobacco Use - Smoking status: Former Smoker Last attempt to quit: 09/06/2003 Years since quittin.2 - Smokeless tobacco: Never Used Substance Use Topics - Alcohol use: Yes Comment: Seldom - Drug use: No No current facility-administered medications on file prior to encounter. Current Outpatient Medications on File Prior to Encounter Medication Sig - albuterol (PROVENTIL) 2.5 mg /3 mL (0.083 %) nebulizer solution Use 3 mL via nebulizer every 4 hours as needed for Wheezing/Shortness of Breath. Use over 5-15minutes. - naproxen (NAPROSYN) 500 mg tablet Take 1 tablet by mouth twice daily as needed (for pain/inflammation). Take with food. Current Facility-Administered Medications Medication Dose Route Frequency Provider Last Rate Last Dose - lidocaine 10 mg/mL (1 %) 1-2 mg injection (XYLOCAINE) 0.1-0.2 mL INTRADERMAL PRN Isis (Plastic Duplicator) Evette - lactated ringers infusion 50 mL/hr INTRAVENOUS CONTINUOUS Isis (Plastic Duplicator) Evette - clindamycin iv piggyback 900 mg in D5W 50 mL (CLEOCIN) 900 mg INTRAVENOUS Pre-Op Once Casi Vital Allergies: ALLERGIES Allergen Reactions - Artificial Strawber* Rash - Ceclor [Cefaclor] Rash DOS EXAM: Adequate NPO status: Yes Anesthetic risks, benefits, alternatives, personnel and consent discussed: Yes Patient agrees to proceed: Yes Previous Anesthesia: No history of adverse event. Airway Assessment: MP 2; Neck ROM: Full ROM without neurologic symptoms; Airway Evaluation: No significant abnormalities Symptoms of Sleep Apnea: None Dentition: Teeth intact Additional Physical Exam: Lungs: Patient health status unchanged since recent history and physical. See history and physical for exam findings. Cardiac: Patient health status unchanged since recent history and physical. See history and physical for exam findings. Additional Pertinent Findings: N/A Blood Products: Not anticipated for this procedure. Anesthetic Plan: General, Standard ASA Monitors and MAC with Sedation Pain Management Plan: Parenteral or Oral ASA Class: 2 Other Medical Problems: None I have interviewed and examined the patient. I have reviewed the medical record and/or the pre-anesthesia evaluation, pertinent labs, and test results. Significant changes in the patient's condition since the History and Physical, not otherwise documented in primary service progress notes: No This contains updated information obtained within 48 hours of Surgery/Procedure. SIGNATURE: Samuel Hdz MD PATIENT NAME: Ratna Davies DATE: December 04, 2019 TIME: 9:45 AM CSN: [id number] [facility] BRIEF OP NOTon 12-04-2019 BRIEF OP NOT HNO ID: [id number] Author: Casi Vital Service: General Surgery Author Type: Physician Type: Brief Op Note Filed: 12/04/2019 1:08 PM Note Text: BRIEF OPERATIVE NOTATION FOR SURGICAL PROCEDURE. Ratna Davies 1980 [id number] female LOG ID: [id number] Surgery/Procedure Date: 12/04/2019 Incision/Procedure Start Time: 12:22 PM Incision Close/Procedure End Time: 12:55 PM Surgeon(s)/Procedural ist(s) and Cardiothoracic Physiotherapist(s): Surgeon(s) and Role: * Casi Vital - Primary Nurse Practitioner: Layne Meyer Physician Cardiothoracic Physiotherapist: Marisol Ferrera REFERRING PHYSICIAN: Outpatient DEPT: [facility] PROVIDER: Lexy POS: [id number] ANESTHESIA: Monitored Anesthesia Care ASA CLASS: 2 - mild DIAGNOSIS: mixed hemorrhoids PROCEDURE: Examination Under Anesthesia, Hemorrhoidectomy - [id number] IVF: 600 EBL: 100 Specimens: left posterior, left anterior, right anterior, right posterior ADDITIONAL DIAGNOSES: FINDINGS: COMPLICATIONS: None PMHx - PAST MEDICAL HISTORY Diagnosis Date - Dysplastic colon polyp - Intrinsic asthma, unspecified COMORBIDITIES - None Post Op Occurrences - None Wound Classification - Clean Contaminated Operative note dictated in the dictation system. -[id number] Casi Vital MD Normal [facility] OPERATIVE NOon 12-04-2019 OPERATIVE NO HNO ID: [id number] Author: Casi Vital Service: General Surgery Author Type: Physician Type: Operative Report Filed: 12/05/2019 12:20 PM Note Text: [facility] - Operative Report RATNA DAVIES : 1980 AGE: 38. SEX: F PATIENT TYPE: A HOSP SVC: [facility] LOCATION: [facility] ATTENDING PHYSICIAN: CASI VITAL CSN NUMBER: [id number] DATE OF SURGERY/PROCEDURE: 12/04/2019 INCISION/PROCEDURE START TIME: 1222. INCISION CLOSE/PROCEDURE END TIME: 1255. PREOPERATIVE DIAGNOSIS: Mixed hemorrhoids with 4 external components, which caused the patient irritation. POSTOPERATIVE DIAGNOSIS: Mixed hemorrhoids. SURGEON: Casi Vital M.D. CUSTOM TAILOR APPRENTICE: 1. KENYETTA Castaneda. 2. Marisol Ferrera. SURGERY/PROCEDURE: Examination under anesthesia with 4 quadrant hemorrhoidectomy. ANESTHESIA: Monitored anesthetic care with local anesthetic injection. LOG ID: [id number]. ANESTHESIOLOGIST: Dr. Samuel Hdz. ASA: 2. INTRAVENOUS FLUIDS: 600 cc. ESTIMATED BLOOD LOSS: 100 cc. URINE OUTPUT: No catheter. FINDINGS: As described above. SPECIMENS: In order were; left posterior, left anterior, right anterior, and right posterior hemorrhoidal complexes; all sent separately. DRAINS: None. COMPLICATIONS: None. CONDITION: Patient taken to PACU in stable condition. DESCRIPTION OF PROCEDURE: Patient was brought to the operative suite. Sign-in was performed, verifying patient, site, procedure, position, critical nursing information, VTE and antibiotic prophylaxis. Patient received 900 mg of clindamycin, had sequential compression devices placed. She was transitioned from the supine to the prone art-knife position with care being taken to avoid pressure points. Following this, she underwent deep MAC sedation. The perineal area was prepped and draped in usual fashion. Time-out was performed, verifying patient, site, procedure, position. Circumferential injection of 1% lidocaine, 50:50 mixture of 0.5% Marcaine was placed circumferentially in the anal verge. By digital exam revealed mixed hemorrhoids without other abnormalities. Following this, closed hemorrhoidectomy was performed using a curved hemostat to lou the external anoderm limit and appendix, and used to grab the body of the hemorrhoidal complex and a straight clamp to lou the anal canal limit. A scalp was used to excise the perianal anoderm area and then the butt end of the scalp was used to dissect the hemorrhoidal complex off the sphincter muscles with care being taken to avoid injury to the sphincter muscle. Following this, electrocautery was used to divide the anal mucosa up to the inner anal canal clamp. At this point, a xupzfx-oh-yeogf 2-0 chromic suture was placed and the hemorrhoid amputated and sent separately. A running locking suture transitioned to a simple suture was used to close the mucosal defect. This was repeated for all 4 quadrants. Following this, the patient was deemed to have adequate looseness of her anal [place], no palpable sphincter defects, and good hemostasis. 1% lidocaine, 0.5% Marcaine 50:50 mixture was again injected for regional block. Dibucaine-impregnated Gelfoam was placed in the anal canal. Dressing applied. The patient returned to supine position, brought to recovery in stable condition. Casi Vital M.D. RG:[id number] /[id number] [facility] PT EDon 12-04-2019 PT ED HNO ID: [id number] Author: Alka (Rn) KITTY Carrington Service: ? Author Type: Registered Nurse Type: Patient Education Filed: 12/04/2019 2:38 PM Note Text: POST OP LEARNING RESPONSE INSTRUCTION PROVIDED TO: Patient and family member METHOD OF INSTRUCTION: Teach Back done Individual instruction Written instruction - handouts Verbal instruction PATIENT / FAMILY RESPONSE: Verbalizes understanding of: MEDICATION PRESCRIBED-Accurate knowledge of prescribed medication prior to discharge MEDICATION SIDE EFFECTS-Side effects associated with the medication that warrant a call to the physician PHYSICAL RESTRICTIONS-Physical restrictions and recommendations after discharge from the hospital POST-OPERATIVE INSTRUCTIONS-Correct actions to take to reduce postoperative complications PATIENT SAFETY PRINCIPLES SYMPTOM MANAGEMENT-Correct actions to take to manage symptoms associated with his/her disease/illness WORSENING CONDITION-Signs and symptoms of a worsening condition that warrant a call to the physician WOUND CARE-Correct procedure to perform wound care FOLLOW-UP PLAN: Patient instructed to call with any further issues Contact information given. SUPPLEMENTAL MATERIAL: None REFERRAL (RECOMMENDATION): None Electronically Signed By: Alka Carrington RN In Department: [facility] [place] SURGERY [facility] PT ED HNO ID: [id number] Author: Ladonna PerrinRn) KITTY Beebe Service: Nursing Author Type: Registered Nurse Type: Patient Education Filed: 12/04/2019 9:35 AM Note Text: PRE OP LEARNING ASSESSMENT PROCEDURE/SURGERY: SURGERY: READINESS TO LEARN COGNITIVE ABILITY: Alert and oriented MOTIVATION TO LEARN: Eager FAMILY SUPPORT: High - Very involved in pt care PATIENT LEARNS BEST BY: Verbal Instruction FACTORS AFFECTING LEARNING: None PHYSICAL LIMITATIONS AFFECTING LEARNING: None Electronically Signed By: Ladonna Beebe RN In Department: [facility] [place] SURGERY [facility] NURSING PROGon 12-03-2019 NURSING PROG HNO ID: [id number] Author: Jennifer PerrinRn) KITTY Fischer Service: ? Author Type: Registered Nurse Type: Nursing Progress Note Filed: 12/03/2019 8:12 AM Note Text: PACC Nurse Progress Note History AND Physical: PACC Visit Date: 12/02/2019 Original HANDP Date: see OV 11/29/[address] Vital ED visit Date: N/A Outside HANDP Scanned Date: N/A Labs Within Last 6 Months: N/A Imaging Within Last 12 Months: N/A Cardiac Testing: N/A Last Menstrual Period: LMP Date: 11/20/2019 Postmenopausal >1yr: No, S/P Hysterectomy: No BMI Percentile (PEDS): N/A Risk Assessment: N/A Anesthesia Review: N/A Narrative: Colonoscopy scheduled for 12/03/2019 per [facility] Pre-op Considerations: LMP 11/20/2019 Colonoscopy scheduled for 12/03/2019 per [facility] Chart Check: COMPLETED Jennifer Fischer RN December 03, 2019 8:10 AM [facility] HOSPon 11-29-2019 HOSP Patient:SamsonRatna MRN: Height:5' 3.75(1.619 m) Weight:182 lb (82.555 kg) Outpatient Medications as of 12/04/19: albuterol (PROVENTIL) 2.5 mg /3 mL (0.083 %) nebulizer solution naproxen (NAPROSYN) 500 mg tablet Admission/Clinic Administered Medications as of 12/04/19: lidocaine 10 mg/mL (1 %) 1-2 mg injection (XYLOCAINE) lactated ringers infusion clindamycin iv piggyback 900 mg in D5W 50 mL (CLEOCIN) Problem List: Asthma, mild intermittent [J45.20] Chronic pelvic pain in female [R10.2, G89.29] PMDD (premenstrual dysphoric disorder) [F32.81] Other hemorrhoids [K64.8] Allergies: artificial strawberry flavoring [Other] Ceclor [Cefaclor] Date Verified: 12/04/19 Lab Values No results within the last 30 days for the following basenames: K,HCT Progress Notes ([facility]): Yves Owens 11/29/2019 11:34 AM Signed 12-03-2019 and 12-04-2019 patient scheduled for Colon 12-03-2019 in [facility] and UEA hemorrhoidectomy on 12-04-2019 [place] Progress Notes ([facility]): Casi Vital MD 11/29/2019 9:55 AM Signed Bowel Preparation Instructions for: Golytely, Nulytely, Trilyte or Colyte (polyethylene glycol 3350 and electrolytes) IF YOU DO NOT FOLLOW THESE DIRECTIONS, YOUR COLONOSCOPY WILL BE CANCELLED. Garibay Instructions: ? Your bowel must be empty so that your doctor can clearly view your colon. Follow all of the instructions in this handout EXACTLY as they are written. ? Do NOT eat any solid food the ENTIRE day before your colonoscopy. Drink only clear liquids. ? Buy your bowel preparation at least 5 days before your colonoscopy. TRANSPORTATION on the Day of Your Exam A responsible person MUST be present with you at Check In prior to your colonoscopy and REMAIN in the endoscopy area until you are discharged. You are NOT ALLOWED to drive, take a taxi or bus, or leave the Endoscopy Center ALONE. If you do not have a responsible route driver (family member or friend) with you to take you home, your exam cannot be done with sedation and will be cancelled. Please bring a list of all of your current medications, including any Over-the Counter medications with you. Medications If you take insulin, diabetic medications or blood thinners such as Coumadin (warfarin), Plavix (clopidogrel), Ticlid (ticlopidine hydrochloride), Agrylin (anagrelide), Xarelto (Rivaroxaban), Pradaxa (Dabigatran), Eliquis (Apixaban), and Effient (Prasugrel). You MUST call the doctors who orders those medicines for instructions on altering the dosage before your colonoscopy. All other medications should be taken the day of the exam with a sip of water including ASPIRIN. Five (5) Days Before Your Colonoscopy ? Do NOT take medicines that stop diarrhea - such as Imodium, Kaopectate, or Pepto Bismol. ? Do NOT take fiber supplements - such as Metamucil, Citrucel, or Perdiem. ? Do NOT take products that contain iron - such as multi-vitamins (the label lists what is in the products). ? Do NOT take Vitamin E. Buy the prescription bowel preparation solution at your local pharmacy or drugstore pharmacy. 2 Bowel Preparation Instructions for: Golytely, Nulytely, Trilyte or Colyte (polyethylene glycol 3350 and electrolytes) Three (3) Days Before Your Colonoscopy ? Do NOT eat high-fiber foods - such as popcorn, beans, seeds (flax, sunflower, quinoa), multigrain bread, nuts, salad/vegetables, or fresh and dried fruit. One (1) Day Before Your Colonoscopy ? Only drink clear liquids the ENTIRE DAY before your colonoscopy. Do NOT eat any solid foods. Drink at least 8 ounces of clear liquids every hour after waking up. The clear liquids you can drink include: Clear Liquid (NO RED LIQUIDS) DO NOT DRINK Gatorade, Pedialyte or Powerade Clear broth or bouillon Coffee or tea (no milk or non-dairy creamer) Carbonated and non-carbonated soft drinks Milad-Aid or other fruit flavored drinks Strained fruit juices (no pulp) Jell-O, popsicles, hard candy Water Alcohol Milk or non-dairy creamers Noodles or vegetables in soup Juice with pulp Liquid you cannot see through The bowel preparation solution will be consumed in two parts. Mix the solution the evening before your colonoscopy and refrigerate before drinking. You may add the flavor pack that came with the bowel preparation. Do NOT add ice, sugar or any other flavorings to the solution. Part 1 ? At 6:00 PM - Evening before your colonoscopy ? Drink an 8-oz glass of bowel preparation every 10 minutes for a total of 8 glasses. ? You may continue to drink clear liquids until midnight. Part 2 ? On the day of your colonoscopy you may drink clear liquids up to (three) 3 hours before your procedure. ? 4 hours before your colonoscopy ? Drink an 8-oz glass of bowel preparation every 10 minutes for a total of 8 glasses. ? Fifteen (15) minutes later, drink an 8-oz glass of clear liquids every 15 minutes for a total of 2 glasses. ? You may continue to drink clear liquids up to (three) 3 hours before your exam. 3 10/2019 Casi Vital MD 12/03/2019 6:23 AM Signed HISTORY AND PHYSICAL Ratna Davies 1980 REFERRING PHYSICIAN: Luca Azevedo MD CHIEF COMPLAINT: Consult (hemorrhoid) HPI: The patient is a 38 year old female referred for endoscopy and for symptomatic hemorrhoids. The patient is noted issues with symptomatic hemorrhoids ever since childbirth. The patient noted a somewhat difficult vaginal delivery in 2010. Since that time she is noted external hemorrhoids. She notes a feeling of incomplete defecation with some seepage she also notes irritation mucus and itching. She was told in the past she had significant external hemorrhoids. Ratna notes a long-standing history of irregular bowels. She notes intermittent diarrhea and constipation. This is been going on for multiple years. She also noted issues related to nausea which usually occurs every morning and occasional issues with vomiting area did she notes left lower quadrant pain and weird cramping bowel movements usually 1 or 2 times a week. She was diagnosed with irritable bowel syndrome in the past. Ratna has undergone prior endoscopy. She underwent upper and lower endoscopy on January 06, 2017. Upper endoscopy demonstrated a normal-appearing esophagus stomach and duodenum. Biopsies were taken of the abdomen. Colonoscopy has a recorded note of the entire examined colon was normal but there were biopsies performed in a random fashion. pathology demonstrated the following: FINAL DIAGNOSIS 1. Gastric antrum, biopsy (A) - Gastric antral/ body mucosa with mild chronic inactive gastritis. - No morphologic evidence of H. pylori organisms. 2. Random colon, biopsy (B) - Colonic mucosa with no significant diagnostic abnormality. - No morphologic evidence of lymphocytic or collagenous colitis. 3. Polyp, colon at 20 cm, biopsy (C) - Fragments of serrated polyp with focal histologic changes suggestive of sessile serrated polyp. ERIK/shlomo 01/11/2017 The patient is being seen by me today at the request of Dr. Luca Azevedo MD for my opinion and advice regarding symptomatic hemorrhoids and a finding suggestive of a serrated polyp at 20 cm on previous colonoscopy. PAST MEDICAL HISTORY Diagnosis Date - Intrinsic asthma, unspecified PAST SURGICAL HISTORY Procedure Laterality Date - COLONOSCOP W/ OR W/O BRSH SPEC N/A 01/06/2017 - EGD W/O OR W/BRUSH/WASH N/A 01/06/2017 - 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 09/04/09 Mirena - LAP CHOLECYSTECT/CHOLANGI OGRAPHY 06/28/11 normal IOC - LAPAROSCOPIC TUBAL LIGATION/RING/CLIP 05/04/11 Current Outpatient Medications Medication Sig - albuterol (PROVENTIL) 2.5 mg /3 mL (0.083 %) nebulizer solution Use 3 mL via nebulizer every 4 hours as needed for Wheezing/Shortness of Breath. Use over 5-15minutes. - peg 3350-Electrolytes (GOLYTELY) 236-22.74-6.74 -5.86 gram suspension Take 4,000 mL by mouth one time only for 1 dose. Refer to printed prep instructions from your doctor. - sulfamethoxazole-trim ethoprim (BACTRIM DS) 800-160 mg per tablet Take 1 tablet by mouth twice daily. (Patient not taking: Reported on 07/19/2019 ) - ranitidine (ZANTAC) 150 mg tablet Take 1 tablet by mouth daily at bedtime. (Patient not taking: Reported on 07/19/2019 ) - oxaprozin (DAYPRO) 600 mg tablet Take 1 tablet by mouth twice daily. (Patient not taking: Reported on 06/26/2019 ) - naproxen (NAPROSYN) 500 mg tablet Take 1 tablet by mouth twice daily as needed (for pain/inflammation). Take with food. No current facility-administered medications for this visit. ALLERGIES: Artificial [place] Flavoring [Other]; Ceclor [Cefaclor] PERSONAL HISTORY: Social History Tobacco Use - Smoking status: Former Smoker Last attempt to quit: 09/06/2003 Years since quittin.2 - Smokeless tobacco: Never Used Substance Use Topics - Alcohol use: Yes Comment: Seldom - Drug use: No FAMILY HISTORY: FAMILY HISTORY Problem Relation Age of Onset - Thyroid Mother - Asthma Mother - Alcohol/Drug Mother - Alcohol/Drug Father - Diabetes Father - Psychiatry Father - Blood Disease Father Hepatitis C - Asthma Father - Asthma Brother REVIEW OF SYMPTOMS: The review of systems data was entered by the nurse and reviewed by me .REVIEW OF SYSTEMS: General: The patient denies fatigue, denies weight loss, denies weight gain, denies feeling hot, and feelings of cold. Eyes: The patient denies glaucoma, denies eye injury/surgery, denies glasses or contacts. Ear/Nose/Throat: The patient denies allergies, denies hayfever, denies ear infections, and denies bloody noses. Cardiovascular: The patient denies chest pain, denies heart disease, denies high blood pressure, denies high cholesterol, and denies poor circulation. Respiratory: The patient denies tuberculosis, denies pneumonia, denies frequent cough, denies shortness of breath, and denies coughing up blood. Gastrointestinal: The patient denies difficulty swallowing, denies acid reflux, denies ulcers, denies jaundice/hepatitis, denies gallbladder problems, denies vomiting, denies black or tarry stools, NOTES hemorrhoids, denies bleeding from rectum, denies diverticulitis, NOTES constipation, NOTES diarrhea, denies loss of stool control, and denies hernias. Kidney/Bladder: The patient denies kidney stones, denies urine infections, and denies bloody urine. Skin: The patient denies a history of skin cancer, denies bleeding/changing moles, and denies a history of skin rash. Neurologic: The patient denies a history of epilepsy/convulsions, denies headaches, denies head/spinal injuries, and denies stroke/TIA. Psychiatric: The patient denies psychiatric medications, denies depression, and denies voices. Endocrine: The patient denies thyroid disorders, denies diabetes, and denies hormonal problems. Hematologic: The patient denies a history of bruising, denies bleeding, and denies anemia. Infections: The patient denies a history of measles and mumps, denies rheumatic fever, and denies sexually transmitted diseases. Musculoskeletal: The patient denies back pain/injury, denies back problems, denies sciatica, denies knee/foot trouble, denies arthritis, or denies gout. PHYSICAL EXAMINATION: General: The patient is 38 year old female, well nourished, well hydrated in no acute distress. The patient is oriented to time, place, and person. VITALS: Blood pressure 122/60, pulse 100, temperature 36.2 ?C (97.1 ?F), height 161.9 cm (5' 3.75), weight 83.8 kg (184 lb 12.8 oz), SpO2 98 %. Body mass index is 31.97 kg/m?. HEENT: Normal cephalic, ataumatic, pupils are equally round, sclera are anicteric, mucous membranes are moist, oropharynx is clear. Neck has no masses, asymmetry or lymphadenopathy. Thyroid is unremarkable. Respiratory: Clear to auscultation and percussion. Normal respiratory excursion and pattern. Cardiac: Examination is regular rate and rhythm. Abdominal exam: Soft, nontender, with no palpable masses. No hepatosplenomegaly. No palpable hernias. Rectal exam: exam deferred Extremities: no clubbing, cyanosis or edema. No adenopathy. Other: LABORATORY VALUES: As Noted RADIOLOGIC STUDIES: As Noted Assessment IMPRESSION: Symptomatic external hemorrhoids, history of irritable bowel syndrome, serrated polyp at 20 cm PLAN: I plan to perform lower endoscopy. We discussed the risks and benefits of the planned endoscopy. I have informed the patient that complications can occur including failure to complete the endoscopy and perforation. The patient had the opportunity to ask questions concerning the planned endoscopy. My staff has also explained the procedure to the patient in understandable terms and has given the patient printed material concerning the procedure. The patient freely consents to surgery. I plan to use golytely bowel preparation for endoscopy I then plan to perform examination under anesthesia with 4 column hemorrhoidectomy. The planned surgical procedure was discussed extensively with the patient. The risks, benefits and anticipated outcomes of the procedure, the risks and benefits of the alternatives to the procedure, and the roles and tasks of the personnel to be involved, were discussed with the patient. My staff has also explained the procedure in understandable terms and the patient was given the option to take printed material concerning the planned procedure. The patient had the opportunity to ask questions concerning the planned procedure. The patient freely consents to the planned procedure. Diagnoses: (D12.6) Adenomatous polyp of colon, unspecified part of colon (primary encounter diagnosis) (K64.2) Grade III hemorrhoids Anticipated Surgical Procedure/ CPT Code: Examination Under Anesthesia, Hemorrhoidectomy - 11005-695 Anticipated Anesthetic: General Patient weight: Blood pressure 122/60, pulse 100, temperature 36.2 ?C (97.1 ?F), height 161.9 cm (5' 3.75), weight 83.8 kg (184 lb 12.8 oz), SpO2 98 %. BMI: Body mass index is 31.97 kg/m?. Planned antibiotic: clindamycin 900mg IVPB head control clerk to OR SCDs needed - Yes Cardiothoracic Physiotherapist Needed - Yes My findings have been communicated to Dr. Luca Azevedo MD via shared medical record. This note will be forwarded to Dr. Luca Azevedo MD. Return to Clinic: The patient is instructed to follow-up with me 1-2 weeks post operatively. Casi Vital MD [facility] CYTOLOGY 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 WORKER, [facility] Vital Signs Date Time Vital Sign Value Performing Clinician Kyler goodwin 05-06-2025 15:28-0400 Body mass index (BMI) [Ratio] 28.2 kg/m2 Hannah Fragoso LABOR CUSTODIAN.COMMUNICATIONS TECHNOLOGIST Work Phone: [facility] 05-06-2025 15:28-0400 Body weight 73.94 kg Hannah Elmsford LABOR CUSTODIAN.COMMUNICATIONS TECHNOLOGIST Work Phone: [facility] 05-06-2025 15:28-0400 Diastolic blood pressure 78 mm[Hg] Hannah Elmsford LABOR CUSTODIAN.COMMUNICATIONS TECHNOLOGIST Work Phone: [facility] 05-06-2025 15:28-0400 Systolic blood pressure 124 mm[Hg] Hannah Elmsford LABOR CUSTODIAN.COMMUNICATIONS TECHNOLOGIST Work Phone: [facility] 02-03-2025 11:55-0400 Body mass index (BMI) [Ratio] 26.61 kg/m2 Hannah Elmsford LABOR CUSTODIAN.COMMUNICATIONS TECHNOLOGIST Work Phone: [facility] 02-03-2025 11:55-0400 Body weight 69.76 kg Hannah Elmsford LABOR CUSTODIAN.COMMUNICATIONS TECHNOLOGIST Work Phone: [facility] 02-03-2025 11:55-0400 Diastolic blood pressure 70 mm[Hg] Hannah Elmsford LABOR CUSTODIAN.COMMUNICATIONS TECHNOLOGIST Work Phone: [facility] 02-03-2025 11:55-0400 Systolic blood pressure 128 mm[Hg] Hannah Jani LABOR CUSTODIAN.COMMUNICATIONS TECHNOLOGIST Work Phone: [facility] 05-24-2024 18:00-0400 Body mass index (BMI) [Ratio] 25.21 kg/m2 Krislyn Aberegg PA Work Phone: [facility] 05-24-2024 18:00-0400 Body temperature 98.71 [degF] Krislyn Aberegg PA Work Phone: [facility] 05-24-2024 18:00-0400 Body weight 66.1 kg Krislyn Aberegg PA Work Phone: [facility] 05-24-2024 18:00-0400 Diastolic blood pressure 72 mm[Hg] Krislyn Aberegg PA Work Phone: [facility] 05-24-2024 18:00-0400 Heart rate 104 /min Krislyn Aberegg PA Work Phone: [facility] 05-24-2024 18:00-0400 Respiratory rate 16 /min Krislyn Aberegg PA Work Phone: [facility] 05-24-2024 18:00-0400 SaO2% (BldA) [Mass fraction] 99 % Krislyn Aberegg PA Work Phone: [facility] 05-24-2024 18:00-0400 Systolic blood pressure 122 mm[Hg] Krislyn Aberegg PA Work Phone: [facility] 12-21-2023 19:21-0500 Body temperature 97.7 [degF] Naun Pendlebury LABOR CUSTODIAN.COMMUNICATIONS TECHNOLOGIST Work Phone: [facility] 12-21-2023 19:21-0500 Body weight 66.68 [facility] CUSTODIAN.COMMUNICATIONS TECHNOLOGIST Work Phone: [facility] 12-21-2023 19:21-0500 Diastolic blood pressure 95 mm[Hg] Naun Pendlebury LABOR CUSTODIAN.COMMUNICATIONS TECHNOLOGIST Work Phone: [facility] 12-21-2023 19:21-0500 Heart rate 95 /min Naun Pendlebury LABOR CUSTODIAN.COMMUNICATIONS TECHNOLOGIST Work Phone: [facility] 12-21-2023 19:21-0500 Respiratory rate 18 /min [facility] LABOR CUSTODIAN.COMMUNICATIONS TECHNOLOGIST Work Phone: [facility] 12-21-2023 19:21-0500 SaO2% (BldA) [Mass fraction] 100 % [facility] LABOR CUSTODIAN.COMMUNICATIONS TECHNOLOGIST Work Phone: [facility] 12-21-2023 19:21-0500 Systolic blood pressure 153 mm[Hg] Naun Pendlebury LABOR CUSTODIAN.COMMUNICATIONS TECHNOLOGIST Work Phone: [facility] 08-11-2023 08:29-0400 Body weight 75.48 kg Hannah Elmsford LABOR CUSTODIAN.COMMUNICATIONS TECHNOLOGIST Work Phone: [facility] 08-11-2023 08:29-0400 Diastolic blood pressure 80 mm[Hg] Hannah Jani LABOR CUSTODIAN.COMMUNICATIONS TECHNOLOGIST Work Phone: [facility] 08-11-2023 08:29-0400 Systolic blood pressure 120 mm[Hg] Hannah Jani LABOR CUSTODIAN.COMMUNICATIONS TECHNOLOGIST Work Phone: [facility] 05-02-2023 08:10-0400 Body height 161.9 cm Hannah Elmsford LABOR CUSTODIAN.COMMUNICATIONS TECHNOLOGIST Work Phone: [facility] 05-02-2023 08:10-0400 Body weight 75.48 kg Hannah Jani LABOR CUSTODIAN.COMMUNICATIONS TECHNOLOGIST Work Phone: [facility] 05-02-2023 08:10-0400 Diastolic blood pressure 80 mm[Hg] Hannah Jani LABOR CUSTODIAN.COMMUNICATIONS TECHNOLOGIST Work Phone: [facility] 05-02-2023 08:10-0400 Systolic blood pressure 120 mm[Hg] Hannah Elmsford LABOR CUSTODIAN.COMMUNICATIONS TECHNOLOGIST Work Phone: [facility] Encounters Encounter Date Encounter Type Care Provider Facility Start: 05-07-2025 End: 05-07-2025 Follow-up encounter Chelsy Cardenas LABOR CUSTODIAN.COMMUNICATIONS TECHNOLOGIST Work Phone: OB/Gynecology Comment on above: Results Start: 05-06-2025 End: 05-06-2025 ambulatory [facility] Facility:[facility] Start: 05-06-2025 End: 05-06-2025 Patient encounter procedure Hannah Elmsford LABOR CUSTODIAN.COMMUNICATIONS TECHNOLOGIST Work Phone: OB/Gynecology Comment on above: Screen for STD (sexu ally transmitted disease) (Primary Dx); Vaginal discharge Start: 02-04-2025 End: 04-06-2025 Follow-up encounter Hannah Jani LABOR CUSTODIAN.COMMUNICATIONS TECHNOLOGIST Work Phone: OB/Gynecology Comment on above: Results Start: 02-03-2025 End: 02-03-2025 ambulatory Hannah Elmsford LABOR CUSTODIAN.COMMUNICATIONS TECHNOLOGIST Work Phone: OB/Gynecology Comment on above: Appt Start: 02-03-2025 End: 02-03-2025 Patient encounter procedure Hannah Elmsford LABOR CUSTODIAN.COMMUNICATIONS TECHNOLOGIST Work Phone: OB/Gynecology Comment on above: Vaginal discharge (P rimary Dx); Vaginal odor Start: 05-25-2024 Telephone encounter Trent Hooper LABOR CUSTODIAN.COMMUNICATIONS TECHNOLOGIST Work Phone: [facility] Comment on above: Results; Orders Start: 05-24-2024 End: 05-24-2024 ambulatory HANNAH JANI Facility:[facility] Start: 05-24-2024 End: 05-24-2024 Patient encounter procedure Michi Wells PA Work Phone: [facility] Comment on above: Burning with urinati on (Primary Dx); Sore throat; Strep pharyngitis Start: 12-21-2023 End: 12-21-2023 Office outpatient visit 25 minutes Naun Moreno APRN.CHAVA Work Phone: [facility] Comment on above: Dental infection (Pr imary Dx) Start: 08-14-2023 Telephone encounter Hnanah ramos LABOR CUSTODIAN.CHAVA Work Phone: OB/Gynecology Comment on above: Results Start: 08-11-2023 End: 08-11-2023 Patient encounter procedure Hannah Fragoso APRN.CHAVA Work Phone: OB/Gynecology Comment on above: Vaginal irritation ( Primary Dx); Screen for STD (sexually transmitted disease) Start: 05-16-2023 Documentation procedure Mammog allie Coordinator [facility] Start: 05-16-2023 Letter encounter Mammography Coordinator [facility] Department Start: 05-02-2023 End: 05-02-2023 Patient encounter procedure Hannah Fragoso APRN.CHAVA Work Phone: OB/Gynecology Comment on above: Encounter for gyneco logical examination (general) (routine) without abnormal findings (Primary Dx); Screening for cervical cancer; Encounter for screening for human papillomavirus (HPV); Encounter for screening mammogram for breast cancer; Vaginal discharge; Vaginal odor Start: 05-02-2023 End: 05-02-2023 Patient encounter status Hannah Fragoso APRN.CHAVA Work Phone: OB/Gynecology Start: 04-18-2022 End: 04-18-2022 Patient encounter procedure Hannah Fragoso APRN.CHAVA Work Phone: OB/Gynecology Comment on above: Pelvic pain in femal e (Primary Dx) Start: 01-14-2022 End: 01-14-2022 Subsequent hospital visit by physician Isaac [facility] Work Phone: Radiology Comment on above: Right ankle pain, un specified chronicity [M25.571] Start: 09-22-2005 Documentation procedure Buddy Pearson MD Work Phone: [facility] Start: 09-22-2005 Historic EMR Buddy Pearson MD Work Phone: [facility] Procedures Date Procedure Procedure Detail Performing Clinician Start: 05-24-2024 STREP A MOLECULAR (POC) Michi ALMARAZ Work Phone: Start: 05-24-2024 Urnls dip stick/tabl et rgnt auto w/o microscopy Michi ALMARAZ Work Phone: Start: 08-11-2023 BACTERIAL VAGINOSIS NAAT [facility] LABOR CUSTODIAN.COMMUNICATIONS TECHNOLOGIST Work Phone: Start: 08-11-2023 Iadna chlamydia trachomatis amplified probe tq [facility] LABOR CUSTODIAN.COMMUNICATIONS TECHNOLOGIST Work Phone: Start: 05-15-2023 Mammography Mammograph y Coordinator Start: 01-14-2022 Radex ankle complete minimum 3 views Marixa Vega LABOR CUSTODIAN.COMMUNICATIONS TECHNOLOGIST Work Phone: Start: 12-03-2019 Colonoscopy Hannah [facility] LABOR CUSTODIAN.COMMUNICATIONS TECHNOLOGIST Work Phone: Start: 09-21-2005 CYTOLOGY 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 WORKER, CONVERTED Buddy Pearson MD Work Phone: Plan of Treatment Date Care Activity Detail Author Start: 02-10-2029 Urine microalbumin profile DTaP,Tdap,Td Vaccine (2 - Td or Tdap) [facility] Start: 05-02-2028 HPV TESTING HPV TESTING [facility] Start: 05-02-2028 Screening for malign ant neoplasm of cervix HPV Testing [facility] Start: 05-02-2026 PAP TESTING PAP TESTING [facility] Start: 05-02-2026 Screening for malign ant neoplasm of cervix [facility] Start: 07-14-2025 End: 07-14-2025 Patient encounter procedure 07/14/2025 1:00 PM EDT Office Visit OB/Gynecology [address] [place] [id number] Hannah Fragoso, LABOR CUSTODIAN.[facility] [address] [place] [address] Annual OB/Gynecology Comment on above: Annual Start: 07-07-2025 Influenza vaccination C [facility] Start: 04-22-2025 End: 04-22-2025 Patient encounter procedure 04/22/2025 4:00 PM EDT Office Visit OB/Gynecology [address] [place] [address] Hannah Fragoso APRN.COMMUNICATIONS TECHNOLOGIST [address] [place] [address] Annual OB/Gynecology Comment on above: Annual Start: 07-07-2024 Covid-19 Vaccine ( season) Covid-19 Vaccine () [facility] Start: 07-07-2024 Influenza vaccination Influenza Vacc ine (#1) [facility] Start: 05-15-2024 Mammography [facility] Start: 05-15-2024 Screening for malign ant neoplasm of breast Mammogram Screening [facility] Start: 07-07-2023 Covid-19 Vaccine ( season) Covid-19 Vaccine ( season) [facility] Start: 07-07-2023 Influenza vaccination C [facility] Start: 2022 Mammography MAMMOGRAM [facility] Start: 12-03-2022 Colonoscopy COLONOSCOPY [facility] Start: 12-03-2022 COLORECTAL CANCER SCREENING COLORECTAL CANCER SCREENING [facility] Start: 12-03-2022 Screening for malign ant neoplasm of colon [facility] Start: 07-07-2022 Influenza vaccination INFLUENZA (Sea son Ended) [facility] Start: 10-18-2019 ANNUAL PCP TEAM 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 SAMMIE DISEASE VISIT ANNUAL PCP TEAM CHRONIC DISEASE VISIT [facility] Start: 01-14-2013 PAP TESTING PAP TESTING [facility] Start: 2012 HPV TESTING HPV TESTING [facility] Start: 2001 Urine microalbumin profile [facility] Start: 2000 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 Disease Visit Annual PCP Team Chronic Disease Visit [facility] Start: 2000 Anxiety Screening Anxiety Screening [facility] Start: 2000 SPIROMETRY SPIROMETRY [facility] Start: 1988 PNEUMOCOCCAL (1 - PCV) PNEUMOCOCCAL (1 - PCV) [facility] Start: 1988 Pneumococcal vaccination Pneumococcal Vaccine (1 - PCV) [facility] Start: 1987 COVID-19 VACCINE (#1) COVID-19 VACCI NE (#1) [facility] Start: 06-25-1983 COVID-19 VACCINE (#1) COVID-19 VACCI NE (#1) [facility] Bacteria identified in Urine by Culture URINE CULTURE Microbiology Routine Burning with urination Ordered: 05/24/2024 [facility] Work Phone: Comment on above: Ordered: 05/24/2024 BACTERIAL VAGINOSIS NAAT BACTERIAL VAGINOSIS NAAT Lab Routine Vaginal discharge Vaginal odor 05/02/2023 8:38 AM EDT [facility] Work Phone: BACTERIAL VAGINOSIS NAAT BACTERIAL VAGINOSIS NAAT Lab Routine Burning with urination Ordered: 05/24/2024 [facility] Comment on above: Ordered: 05/24/2024 BACTERIAL VAGINOSIS NAAT BACTERIAL VAGINOSIS NAAT Lab Routine Vaginal discharge Vaginal odor 02/03/2025 1:10 PM EDT [facility] BACTERIAL VAGINOSIS NAAT BACTERIAL VAGINOSIS NAAT Lab Routine Vaginal discharge 05/06/2025 3:56 PM EDT [facility] CATHY/TRICHOMONAS NAAT CATHY/TRICHOMONAS NAAT Microbiology Routine Vaginal discharge Vaginal odor 05/02/2023 8:38 AM EDT [facility] Work Phone: CATHY/TRICHOMONAS NAAT CATHY/TRICHOMONAS NAAT Lab Routine Burning with urination Ordered: 05/24/2024 [facility] Comment on above: Ordered: 05/24/2024 CATHY/TRICHOMONAS NAAT CATHY/TRICHOMONAS NAAT Lab Routine Vaginal discharge 02/03/2025 1:10 PM EDT [facility] Work Phone: CATHY/TRICHOMONAS NAAT CATHY/TRICHOMONAS NAAT Lab Routine Vaginal discharge 05/06/2025 3:56 PM EDT [facility] Work Phone: Chlamydia trachomatis+Neisseria gonorrhoeae DNA [Presence] in Unspecified specimen by TIGRE with probe detection GONORRHEA/CHLAMYDIA NAAT Lab Routine Vaginal discharge Vaginal odor 05/02/2023 8:38 AM EDT [facility] Work Phone: Chlamydia trachomatis+Neisseria gonorrhoeae DNA [Presence] in Unspecified specimen by TIGRE with probe detection [facility] Comment on above: Ordered: 05/24/2024 Chlamydia trachomatis+Neisseria gonorrhoeae DNA [Presence] in Unspecified specimen by TIGRE with probe detection GONORRHEA/CHLAMYDIA NAAT Lab Routine Vaginal discharge Vaginal odor 02/03/2025 1:10 PM EDT [facility] Chlamydia trachomatis+Neisseria gonorrhoeae DNA [Presence] in Unspecified specimen by TIGRE with probe detection GONORRHEA/CHLAMYDIA NAAT Lab Routine Screen for STD (sexually transmitted disease) 05/06/2025 3:56 PM EDT [facility] End: 05-31-2024 MIKE SCREENING MIKE SCREENING Radiology Routine Encounter for screening mammogram for breast cancer 1 Occurrences starting 05/02/2023 until 05/31/2024 [facility] Work Phone: Comment on above: 1 Occurrences starti ng 05/02/2023 until 05/31/2024 PAP TEST PAP TEST Lab [facility] an Encounter for gynecological examination (general) (routine) without abnormal findings Screening for cervical cancer Encounter for screening for human papillomavirus (HPV) 05/02/2023 8:38 AM EDT [facility] Work Phone: End: 05-18-2023 Us transvaginal US FEMALE PELVIS TRANSVAG Radiology Routine Pelvic pain in female 1 Occurrences starting 04/18/2022 until 05/18/2023 [facility] Work Phone: Comment on above: 1 Occurrences starti ng 04/18/2022 until 05/18/2023 [facility] Immunizations Immunization Date Immunization Notes Care Provider Fa [facility] 10-18-2018 influenza virus vaccine, unspecified formulation Buddy Pearson MD Work Phone: [facility] 09-24-2010 influenza virus vaccine, unspecified formulation Hannah Elmsford LABOR CUSTODIAN.COMMUNICATIONS TECHNOLOGIST Work Phone: [facility] Work Phone: 11-08-2006 influenza virus vaccine, unspecified formulation Hannah Jani LABOR CUSTODIAN.COMMUNICATIONS TECHNOLOGIST Work Phone: [facility] Work Phone: Payers Date Payer Category Payer Medicaid [id number] 2006 Medicaid [employer] [id number] 2006-Present [phone] [address] [place] [address] Medicaid [id number] 2006 Medicaid [id number] Social History Date Type Detail Facility Start: 05-02-2023 End: 02-03-2025 Tobacco smoking status NHIS Ex-smoker [facility] End: 09-06-2003 History of tobacco use Current smoker [facility] Start: 04-18-2022 End: 05-06-2025 Alcohol intake Current drinker of alcohol (finding) [facility] Start: 10-08-2020 History SDOH Alcohol Binge 1 [facility] Start: 10-10-2016 History SDOH Alcohol Comment Seldom [facility] Start: 10-08-2020 History SDOH Social Connections Phone 5 [facility] Start: 10-08-2020 History SDOH Social Connections Get Together 3 [facility] Start: 10-08-2020 History SDOH Social Connections Membership 2 [facility] Start: 10-08-2020 History SDOH Social Connections Living 8 [facility] Start: 10-08-2020 History SDOH Physica l Activity DPW 7 [facility] Start: 10-08-2020 History SDOH Physica l Activity MPS 15 [facility] Start: 10-07-2020 Education 21 [facility] Start: 1980 Sex Assigned At Female C [facility] End: 09-06-2003 History of tobacco use Cigarette Smoker [facility] Start: 05-02-2023 End: 02-03-2025 Tobacco use and exposure Smokeless tobacco non-user [facility] Start: 10-07-2020 End: 02-03-2025 History of Social function [facility] Start: 10-07-2020 End: 02-03-2025 Social connection and isolation panel [facility] Do you belong to any clubs or organizations such as latter day groups, unions, fraternal or athletic groups, or school groups? No [facility] Are you now , , , , never or living with a partner? Living with partner [facility] Frequency of Alcohol Consumption Not on file [facility] How often do you hav e 6 or more drinks on 1 occasion? Never [facility] How hard is it for y ou to pay for the very basics like food, housing, medical care, and heating Somewhat hard [facility] Do you feel stress - tense, restless, nervous, or anxious, or unable to sleep at night because your mind is troubled all the time - these days [OSQ] To some extent [facility] (I/We) worried whelorenza er (my/our) food would run out before (I/we) got money to buy more. Sometimes true [facility] Start: 12-17-2019 Gender identity Identifies as female gender (finding) [facility] Start: 12-17-2019 Sexual orientation Heterosexual (wyatt myrick) [facility] Tobacco smoking stat [facility] Tobacco smoking consumption unknown [facility] Start: 04-08-2022 End: 04-18-2022 Exposure to SARS-CoV-2 (event) Not sure [facility] Functional Status Date Assessment Result Facility 02-25-2015 Are you deaf, or do you have serious difficulty hearing No 02/25/2015 2:32 PM Esperanza Vega Ma [facility] Work Phone: 02-25-2015 Are you blind, or do you have serious difficulty seeing, even when wearing glasses No 02/25/2015 2:32 PM Esperanza Vega Ma No [facility] 02-25-2015 Do you have serious difficulty walking or climbing stairs Yes 02/25/2015 2:32 PM Esperanza Vega Ma Yes [facility] 02-25-2015 Do you have difficul ty dressing or bathing No 02/25/2015 2:32 PM Esperanza Vega Ma [facility] 02-25-2015 Because of a physica l, mental, or emotional condition, do you have difficulty doing errands alone such as visiting a physician's office or shopping No 02/25/2015 2:32 PM Esperanza Vega Ma [facility] Mental Status Date Assessment Result Facility 02-25-2015 Because of a physica l, mental, or emotional condition, do you have serious difficulty concentrating, remembering, or making decisions No 02/25/2015 2:32 PM EDT [place], Esperanza No [facility] Clinical Notes 06-24-2011 to 05-07-2025 Telephone Encounter - Arleen Multani RN - 05/07/2025 3:02 PM EDTTelephone Encounter - Arleen Multani RN - 05/07/2025 3:02 PM EDTMHannah mora APRN.CNP - 05/06/2025 3:15 PM EDT Note Date & Type Note Facility 05-07-2025 Telephone encounter Note Patient notified of results, verbalizes understanding of instructions. Arleen Multani RN [facility] 05-07-2025 Miscellaneous Notes Patient notified of results, verbalizes understanding of instructions. Arleen Multani RN RM patient Please notify patient: + BV Rx for Metrogel sent I recommend follow up with RM for consideration of recurrent BV therapy Chelsy Cardenas APRN.CNP documented in this encounter [facility] 05-07-2025 Telephone encounter Note RM patient Please notify patient: + BV Rx for Metrogel sent I recommend follow up with RM for consideration of recurrent BV therapy Chelsy Cardenas APRN.CNP [facility] 05-06-2025 Note HNO ID: [id number] Author: HANNAH FRAGOSO APRN.CNP Service: ? Author Type: Nurse Practitioner Type: Progress Notes Filed: 05/06/2025 16:17 Note Text: Patient declined boiler blower. 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 Patient/authorized technical services representative agreed to proceed CHIEF COMPLAINT: The patient is a 44-year-old female presenting for evaluation of vaginal discharge and concerns about potential STIs. HPI: Vaginal Discharge and STI Concerns - Reports recurrent vaginal discharge for the past two weeks, which she believes is a recurrence of a previous infection treated in March. - Unable to complete the full course of antibiotics for the previous infection due to being kicked out of her house and not having access to her medication. - Engaging in sexual activity with multiple partners, expressing difficulty in maintaining celibacy. - Desires STI testing to ensure she is clean. Living Situation and Stress - Currently homeless and on a waiting list for emergency housing for the past two months. - Expresses significant stress and emotional distress due to her living situation, stating, I don't want to do this life anymore, it's not good. - Reports difficulty in accessing basic needs such as food and mcfp, relying on others for support. HISTORY: OB History Gravida3 Para3 Term3 Preterm0 AB0 Living3 SAB0 IAB0 Ectopic0 Multiple0 Live Births2 Manager Hris History LMP: 04/06/2025 (Exact Date), Having periods Age at Menarche: 18 Age at First : Age at Menopause: Manager Hris History Comments: Sexual Activity: Yes; Male; Essure Contraception: Surgical Menstrual Tracking History Flowsheet Row Office Visit from 02/03/2025 in OB/Gynecology Period Duration (Days) 5 Menstrual Flow Moderate PAST MEDICAL HISTORY Diagnosis Date Dysplastic colon polyp Intrinsic asthma, unspecified PAST SURGICAL HISTORY Procedure Laterality Date COLONOSCOPY FLX DX W/COLLJ SPEC WHEN PFRMD N/A 01/06/2017 COLONOSCOPY FLX DX W/COLLJ SPEC WHEN PFRMD 12/03/2019 Colonoscopy ESOPHAGOGASTRODUODENOSCOPY TRANSORAL DIAGNOSTIC N/A 01/06/2017 EUA 12/04/2019 HEMORRHOIDECTOMY 12/04/2019 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 09/04/09 Mirena LAPAROSCOPIC TUBAL LIGATION/RING/CLIP 05/04/11 LAPS SURG CHOLECYSTECTOMY W/CHOLANGIOGRAPHY 06/28/11 normal C FAMILY HISTORY Problem Relation Age of Onset Thyroid Mother Asthma Mother Alcohol/Drug Mother Alcohol/Drug Father Diabetes Father Psychiatry Father Blood Disease Father Hepatitis C Asthma Father Asthma Brother Alcohol abuse Brother Social History Tobacco Use Smoking status: Former Current packs/day: 0.00 Types: Cigarettes Quit date: 09/06/2003 Years since quittin.6 Smokeless tobacco: Never Vaping Use Vaping status: current everyday user Substances: Nicotine Substance Use Topics Alcohol use: Yes Comment: Seldom No current outpatient medications on file. No current facility-administered medications for this visit. ALLERGIES Allergen Reactions Ceclor [Cefaclor] Rash REVIEW OF SYSTEMS: Gastrointestinal: (+) abdominal cramping Genitourinary: (+) vaginal discharge Psychiatric: (+) emotional lability Objective SENSITIVE EXAM: The sensitive examination was discussed with the Patient or Patient's Authorized Numberer And Wirer. As applicable, any other physician, advance practice provider, medical student, or other health professional student that will be observing or involved in the sensitive examination for educational or training purposes was discussed with the Patient or Authorized Numberer And Wirer. The Patient or Authorized Numberer And Wirer has agreed to proceed with the sensitive examination. (Sensitive examination includes inspection and/or palpation of the breasts, pelvis, prostate and anorectal regions). PHYSICAL EXAM: BP 124/78 Wt 163 lb (73.9kg) LMP 04/06/2025 GENERAL: Pleasant; no acute distress PULMONARY: normal inspiratory effort : - PELVIC: external genitalia normal, normal Bartholin's glands, urethra, Wyboo's glands, no vulvar lesions, no cervical lesions, good vaginal support, physiologic discharge present, normal appearing perineal body and perianal region, cold speculum exam performed - Patient consent for exam received NEURO: alert and oriented x3 EXTREMITIES: normal Assessment AND Plan ASSESSMENT AND PLAN: 1. Screen for STD (sexually transmitted disease) (Z11.3) - Performed STD screening; results expected by tomorrow. 2. Vaginal discharge (N89.8) - Recurrent vaginal discharge noted; previous antibiotic course was incomplete. - Discussed potential causes including incomplete treatment of previous bacterial vaginosis. - Advised patient on the importance of completing antibiotic cour (more content not included)... [facility] 05-06-2025 History of Presen t illness Narrative Images from the original note were not included. Patient declined boiler blower. 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 Patient/authorized technical services representative agreed to proceed CHIEF COMPLAINT: The patient is a 44-year-old female presenting for evaluation of vaginal discharge and concerns about potential STIs. HPI: Vaginal Discharge and STI Concerns - Reports recurrent vaginal discharge for the past two weeks, which she believes is a recurrence of a previous infection treated in March. - Unable to complete the full course of antibiotics for the previous infection due to being kicked out of her house and not having access to her medication. - Engaging in sexual activity with multiple partners, expressing difficulty in maintaining celibacy. - Desires STI testing to ensure she is clean. Living Situation and Stress - Currently homeless and on a waiting list for emergency housing for the past two months. - Expresses significant stress and emotional distress due to her living situation, stating, I don't want to do this life anymore, it's not good. - Reports difficulty in accessing basic needs such as food and mcfp, relying on others for support. HISTORY: OB History Gravida3 Para3 Term3 Preterm0 AB0 Living3 SAB0 IAB0 Ectopic0 Multiple0 Live Births2 Manager Hris History LMP: 04/06/2025 (Exact Date), Having periods Age at Menarche: 18 Age at First : Age at Menopause: Manager Hris History Comments: Sexual Activity: Yes; Male; Essure Contraception: Surgical Menstrual Tracking History Flowsheet Row Office Visit from 02/03/2025 in OB/Gynecology Period Duration (Days) 5 Menstrual Flow Moderate PAST MEDICAL HISTORY Diagnosis Date Dysplastic colon polyp Intrinsic asthma, unspecified PAST SURGICAL HISTORY Procedure Laterality Date COLONOSCOPY FLX DX W/COLLJ SPEC WHEN PFRMD N/A 01/06/2017 COLONOSCOPY FLX DX W/COLLJ SPEC WHEN PFRMD 12/03/2019 Colonoscopy ESOPHAGOGASTRODUODENOSCOPY TRANSORAL DIAGNOSTIC N/A 01/06/2017 EUA 12/04/2019 HEMORRHOIDECTOMY 12/04/2019 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 09/04/09 Mirena LAPAROSCOPIC TUBAL LIGATION/RING/CLIP 05/04/11 LAPS SURG CHOLECYSTECTOMY W/CHOLANGIOGRAPHY 06/28/11 normal [facility] FAMILY HISTORY Problem Relation Age of Onset Thyroid Mother Asthma Mother Alcohol/Drug Mother Alcohol/Drug Father Diabetes Father Psychiatry Father Blood Disease Father Hepatitis C Asthma Father Asthma Brother Alcohol abuse Brother Social History Tobacco Use Smoking status: Former Current packs/day: 0.00 Types: Cigarettes Quit date: 09/06/2003 Years since quittin.6 Smokeless tobacco: Never Vaping Use Vaping status: current everyday user Substances: Nicotine Substance Use Topics Alcohol use: Yes Comment: Seldom No current outpatient medications on file. No current facility-administered medications for this visit. ALLERGIES Allergen Reactions Ceclor [Cefaclor] Rash REVIEW OF SYSTEMS: Gastrointestinal: (+) abdominal cramping Genitourinary: (+) vaginal discharge Psychiatric: (+) emotional lability Objective SENSITIVE EXAM: The sensitive examination was discussed with the Patient or Patient's Authorized Numberer And Wirer. As applicable, any other physician, advance practice provider, medical student, or other health professional student that will be observing or involved in the sensitive examination for educational or training purposes was discussed with the Patient or Authorized Numberer And Wirer. The Patient or Authorized Numberer And Wirer has agreed to proceed with the sensitive examination. (Sensitive examination includes inspection and/or palpation of the breasts, pelvis, prostate and anorectal regions). PHYSICAL EXAM: BP 124/78 Wt 163 lb (73.9kg) LMP 04/06/2025 GENERAL: Pleasant; no acute distress PULMONARY: normal inspiratory effort : - PELVIC: external genitalia normal, normal Bartholin's glands, urethra, Wyboo's glands, no vulvar lesions, no cervical lesions, good vaginal support, physiologic discharge present, normal appearing perineal body and perianal region, cold speculum exam performed - Patient consent for exam received NEURO: alert and oriented x3 EXTREMITIES: normal Assessment & Plan ASSESSMENT AND PLAN: 1. Screen for STD (sexually transmitted disease) (Z11.3) - Performed STD screening; results expected by tomorrow. 2. Vaginal discharge (N89.8) - Recurrent vaginal discharge noted; previous antibiotic course was incomplete. - Discussed potential causes including incomplete treatment of previous bacterial vaginosis. - Advised patient on the importance of completing antibiotic courses to prevent recurrence. Hannah Fragoso APRN.CNP Medical Decision Making: Problems: Low: Acute, uncomplicated illness or injury Data: Unique test(s) ordered: 3+ Risk: Low: Low risk from testing/treatment Medical Decision Making Level: 3 - Low documented in this encounter [facility] 02-04-2025 Telephone encounter Note BV positive. To treat with Flagyl 500mg PO BID for 7 days. 1) No alcohol during treatment and for 24 hours after last dose. 2) No intercourse during treatment. 3) Probiotic by mouth once daily for 30 days or as needed. Hannah Fragoso APRN.CNP [facility] 02-04-2025 Miscellaneous Notes BV positive. To treat with Flagyl 500mg PO BID for 7 days. 1) No alcohol during treatment and for 24 hours after last dose. 2) No intercourse during treatment. 3) Probiotic by mouth once daily for 30 days or as needed. Hannah Fragoso APRN.CNP documented in this encounter [facility] 02-03-2025 Telephone encounter Note Patient did see today for visit. Letitia Ley RN [facility] 02-03-2025 Miscellaneous Notes Patient did see today for visit. Letitia Ley RN documented in this encounter [facility] 02-03-2025 Note HNO ID: [id number] Author: HANNAH FRAGOSO APRN.CNP Service: ? Author Type: Nurse Practitioner Type: Progress Notes Filed: 02/03/2025 12:09 Note Text: Patient declined boiler blower. Ratna Davies is a 44 year old female who presents for problem visit vaginal discharge, odor. HPI: pt states that she the discharge and odor for the past 1-2 wks. Denies any burning or irritation. OB History Gravida3 Para3 Term3 Preterm0 AB0 Living3 SAB0 IAB0 Ectopic0 Multiple0 Live Births2 Manager Hris History LMP: 01/20/2025 (Exact Date), Having periods Age at Menarche: 18 Age at First : Age at Menopause: Manager Hris History Comments: Sexual Activity: Yes; Male; Essure Contraception: Surgical Menstrual Tracking History Flowsheet Row Office Visit from 02/03/2025 in OB/Gynecology Period Duration (Days) 5 Menstrual Flow Moderate PAST MEDICAL HISTORY Diagnosis Date Dysplastic colon polyp Intrinsic asthma, unspecified PAST SURGICAL HISTORY Procedure Laterality Date COLONOSCOPY FLX DX W/COLLJ SPEC WHEN PFRMD N/A 01/06/2017 COLONOSCOPY FLX DX W/COLLJ SPEC WHEN PFRMD 12/03/2019 Colonoscopy ESOPHAGOGASTRODUODENOSCOPY TRANSORAL DIAGNOSTIC N/A 01/06/2017 EUA 12/04/2019 HEMORRHOIDECTOMY 12/04/2019 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 09/04/09 Mirena LAPAROSCOPIC TUBAL LIGATION/RING/CLIP 05/04/11 LAPS SURG CHOLECYSTECTOMY W/CHOLANGIOGRAPHY 06/28/11 normal IOC FAMILY HISTORY Problem Relation Age of Onset Thyroid Mother Asthma Mother Alcohol/Drug Mother Alcohol/Drug Father Diabetes Father Psychiatry Father Blood Disease Father Hepatitis C Asthma Father Asthma Brother Alcohol abuse Brother Social History Tobacco Use Smoking status: Former Current packs/day: 0.00 Types: Cigarettes Quit date: 09/06/2003 Years since quittin.4 Smokeless tobacco: Never Vaping Use Vaping status: current everyday user Substances: Nicotine Substance Use Topics Alcohol use: Yes Comment: Seldom Current Outpatient Medications Medication Sig LIDOCAINE VISCOUS 2 % solution Take 5 mL by mouth four times a day as needed for pain. (Patient not taking: Reported on 12/21/2023) No current facility-administered medications for this visit. Allergies As of Date: 02/03/2025 Allergen Noted Reaction CECLOR [CEFACLOR] 01/03/2006 Rash Fully Assessed 02/03/2025 REVIEW OF SYSTEMS Bladder: No dysuria, gross hematuria, urinary frequency, urinary urgency, or incontinence. Expanded ROS: N/A Allergies and current medication updated:Yes SENSITIVE EXAM: The sensitive examination was discussed with the Patient or Patient's Authorized Numberer And Wirer. As applicable, any other physician, advance practice provider, medical student, or other health professional student that will be observing or involved in the sensitive examination for educational or training purposes was discussed with the Patient or Authorized Numberer And Wirer. The Patient or Authorized Numberer And Wirer has agreed to proceed with the sensitive examination. (Sensitive examination includes inspection and/or palpation of the breasts, pelvis, prostate and anorectal regions). EXAM: BP 128/70 Wt 153 lb 12.8 oz (69.8kg) LMP 01/20/2025 GENERAL: pleasant, female in no apparent distress HEENT: Normocephalic, atraumatic, mucus membranes moist, and no lesions CHEST: Normal inspiratory effort PELVIC: external genitalia normal, normal Bartholin's glands, urethra, Wyboo's glands, no vulvar lesions, no cervical lesions, good vaginal support, physiologic discharge present, normal appearing perineal body and perianal region BIMANUAL: deferred NEURO: alert and oriented x3,exam grossly non-focal EXTREMITIES: normal ASSESSMENT AND PLAN: Assessment AND Plan Vaginal discharge Orders: CATHY/TRICHOMONAS NAAT BACTERIAL VAGINOSIS NAAT GONORRHEA/CHLAMYDIA NAAT Vaginal odor Orders: BACTERIAL VAGINOSIS NAAT GONORRHEA/CHLAMYDIA NAAT Will notify patient of test results. 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 Ratna Davies is a 44 year old female who presents for problem visit vaginal discharge, odor. HPI: pt states that she the discharge and odor for the past 1-2 wks. Denies any burning or irritation. OB History Gravida3 Para3 Term3 Preterm0 AB0 Living3 SAB0 IAB0 Ectopic0 Multiple0 Live Births2 Manager Hris History LMP: 01/20/2025 (Exact Date), Having periods Age at Menarche: 18 Age at First : Age at Menopause: Manager Hris History Comments: Sexual Activity: Yes; Male; Essure Contraception: Surgical Menstrual Tracking History Flowsheet Row Office Visit from 02/03/2025 in OB/Gynecology Period Duration (Days) 5 Menstrual Flow Moderate PAST MEDICAL HISTORY Diagnosis Date Dysplastic colon polyp Intrinsic asthma, unspecified PAST SURGICAL HISTORY Procedure Laterality Date COLONOSCOPY FLX DX W/COLLJ SPEC WHEN PFRMD N/A 01/06/2017 COLONOSCOPY FLX DX W/COLLJ SPEC WHEN PFRMD 12/03/2019 Colonoscopy ESOPHAGOGASTRODUODENOSCOPY TRANSORAL DIAGNOSTIC N/A 01/06/2017 EUA 12/04/2019 HEMORRHOIDECTOMY 12/04/2019 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 09/04/09 Mirena LAPAROSCOPIC TUBAL LIGATION/RING/CLIP 05/04/11 LAPS SURG CHOLECYSTECTOMY W/CHOLANGIOGRAPHY 06/28/11 normal [facility] FAMILY HISTORY Problem Relation Age of Onset Thyroid Mother Asthma Mother Alcohol/Drug Mother Alcohol/Drug Father Diabetes Father Psychiatry Father Blood Disease Father Hepatitis C Asthma Father Asthma Brother Alcohol abuse Brother Social History Tobacco Use Smoking status: Former Current packs/day: 0.00 Types: Cigarettes Quit date: 09/06/2003 Years since quittin.4 Smokeless tobacco: Never Vaping Use Vaping status: current everyday user Substances: Nicotine Substance Use Topics Alcohol use: Yes Comment: Seldom Current Outpatient Medications Medication Sig LIDOCAINE VISCOUS 2 % solution Take 5 mL by mouth four times a day as needed for pain. (Patient not taking: Reported on 12/21/2023) No current facility-administered medications for this visit. Allergies As of Date: 02/03/2025 Allergen Noted Reaction CECLOR [CEFACLOR] 01/03/2006 Rash Fully Assessed 02/03/2025 REVIEW OF SYSTEMS Bladder: No dysuria, gross hematuria, urinary frequency, urinary urgency, or incontinence. Expanded ROS: N/A Allergies and current medication updated:Yes SENSITIVE EXAM: The sensitive examination was discussed with the Patient or Patient's Authorized Numberer And Wirer. As applicable, any other physician, advance practice provider, medical student, or other health professional student that will be observing or involved in the sensitive examination for educational or training purposes was discussed with the Patient or Authorized Numberer And Wirer. The Patient or Authorized Numberer And Wirer has agreed to proceed with the sensitive examination. (Sensitive examination includes inspection and/or palpation of the breasts, pelvis, prostate and anorectal regions). EXAM: BP 128/70 Wt 153 lb 12.8 oz (69.8kg) LMP 01/20/2025 GENERAL: pleasant, female in no apparent distress HEENT: Normocephalic, atraumatic, mucus membranes moist, and no lesions CHEST: Normal inspiratory effort PELVIC: external genitalia normal, normal Bartholin's glands, urethra, Wyboo's glands, no vulvar lesions, no cervical lesions, good vaginal support, physiologic discharge present, normal appearing perineal body and perianal region BIMANUAL: deferred NEURO: alert and oriented x3,exam grossly non-focal EXTREMITIES: normal ASSESSMENT AND PLAN: Assessment & Plan Vaginal discharge Orders: CATHY/TRICHOMONAS NAAT BACTERIAL VAGINOSIS NAAT GONORRHEA/CHLAMYDIA NAAT Vaginal odor Orders: BACTERIAL VAGINOSIS NAAT GONORRHEA/CHLAMYDIA NAAT Will notify patient of test results. Hannah Fragoso APRN.CHAVA Medical Decision Making: Problems: Moderate: New problem with uncertain prognosis Data: Unique test(s) ordered: 3+ Risk: Low: Low risk from testing/treatment Medical Decision Making Level: 4 - Moderate documented in this encounter [facility] 05-28-2024 Telephone encounter Note 05/27/24 2:30 pm Pt viewed results and note from DIETETIC ASSISTANT on my chart. Kirsty Pereira LPN [facility] 05-28-2024 Miscellaneous Notes 05/27/24 2:30 pm Pt viewed results and note from DIETETIC ASSISTANT on my chart. Kirsty Pereira LPN Called pharmacy and she has not picked up medication and they have same phone number on file. Alyssa Blakely MA Attempted to call pt, phone number is no longer in service. Not sure how to get a hold of pt, pt is homeless at this time. Will try number again later to see if it is back in order. Cande Chang MA Patient is positive for trichomonas and bacterial vaginosis. Antibiotics were called in twice a day for 7 days called Flagyl. Patient needs to complete the 7 days. Patient should not drink alcohol on the medication. Patient was negative for gonorrhea, chlamydia, yeast. Patient should notify all partners as trichomonas is an STD. documented in this encounter [facility] 05-26-2024 Telephone encounter Note Called pharmacy and she has not picked up medication and they have same phone number on file. Alyssa Blakely MA [facility] 05-25-2024 Telephone encounter Note Attempted to call pt, phone number is no longer in service. Not sure how to get a hold of pt, pt is homeless at this time. Will try number again later to see if it is back in order. Cande Chang MA [facility] 05-25-2024 Telephone encounter Note Patient is positive for trichomonas and bacterial vaginosis. Antibiotics were called in twice a day for 7 days called [facility]. Patient needs to complete the 7 days. Patient should not drink alcohol on the medication. Patient was negative for gonorrhea, chlamydia, yeast. Patient should notify all partners as trichomonas is an STD. [facility] 05-24-2024 Note HNO ID: [id number] Author: MICHI WELLS PA Service: ? Author Type: Physician Cardiothoracic Physiotherapist Type: Progress Notes Filed: 05/24/2024 18:41 Note Text: This note was created using [employer]. Subjective Ratna Davies is a 43 year old female. HPI 43-year-old female presents for multiple complaints. Patient states she has been having burning with urination, suprapubic pressure on and off for couple of months. She states that she is concerned she may have a UTI. She has been taking Azo [id number] which has helped subside symptoms, but this week symptoms got worse. Patient does report she is homeless, is difficult for her to get a ride to the doctor's office. She denies any fevers, abdominal pain, back pain, vomiting or diarrhea. She does report urinary urgency, frequency, suprapubic pressure and burning with urination. Patient has had a little bit of vaginal discharge. No vaginal itching or vaginal pain. No new rash. Patient states that she would like tested for STDs as well. She states that she has been having vaginal intercourse with a new partner and has also been having oral sex with a different partner. No concern for . Patient states that she has had a sore throat for the past week or so. She states that she was exposed to strep. She is also concerned about possible STD in the throat as noted above. No fevers. She has had a little bit of runny nose. No cough. No chest pain or shortness of breath. Still able to eat and drink. No other complaint. 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 LIDOCAINE VISCOUS 2 % solution Take 5 mL by mouth four times a day as needed for pain. (Patient not taking: Reported on 12/21/2023) FAMILY HISTORY Problem Relation Age of Onset Thyroid Mother Asthma Mother Alcohol/Drug Mother Alcohol/Drug Father Diabetes Father Psychiatry Father Blood Disease Father Hepatitis C Asthma Father Asthma Brother Alcohol abuse Brother Social History Tobacco Use Smoking status: Former Types: Cigarettes Quit date: 09/06/2003 Years since quittin.7 Smokeless tobacco: Never Vaping Use Vaping Use: current everyday user Substances: Nicotine Substance Use Topics Alcohol use: Yes Comment: Seldom Review of Systems Constitutional: Negative for chills and fever. HENT: Positive for sore throat. Negative for congestion and ear pain. Respiratory: Negative for cough and shortness of breath. Cardiovascular: Negative for chest pain. Gastrointestinal: Negative for abdominal pain, diarrhea and vomiting. Genitourinary: Positive for dysuria, frequency, urgency and vaginal discharge. Negative for vaginal bleeding and vaginal pain. Objective BP 122/72 Pulse 104 Temp 37.1 ?C (98.7 ?F) Resp 16 Wt 66.1 kg (145 lb 11.6 oz) LMP 08/02/2023 SpO2 99% BMI 25.21 kg/m? Physical Exam Vitals and nursing note reviewed. Constitutional: General: She is not in acute distress. Appearance: Normal appearance. She is not toxic-appearing. HENT: Right Ear: Tympanic membrane and ear canal normal. Left Ear: Tympanic membrane and ear canal normal. Nose: Nose normal. Mouth/Throat: Mouth: Mucous membranes are moist. Pharynx: Uvula midline. Posterior oropharyngeal erythema present. Tonsils: No tonsillar exudate or tonsillar abscesses. 2+ on the right. 2+ on the left. Eyes: Conjunctiva/sclera: Conjunctivae normal. Cardiovascular: Rate and Rhythm: Normal rate and regular rhythm. Pulmonary: Effort: Pulmonary effort is normal. Breath sounds: Normal breath sounds. Genitourinary: Comments: Deferred by patient Skin: General: Skin is warm and dry. Neurological: Mental Status: She is alert. Assessment and Plan ASSESSMENT/PLAN: 1. Burning with urination - ICD9: 788.1, ICD10: R30.0 (primary diagnosis) acute - UA positive for fany esterase, hematuria, proteinuria, and nitrates. - On AZO - Send urine for culture - Begin treatment with Macrobid 100 mg BID for 5 days - Patient education for prevention given - UA DIP, URINE (POC) - URINE CULTURE - GONORRHEA/CHLAMYDIA NAAT - CATYH/TRICHOMONAS NAAT - BACTERIAL VAGINOSIS NAAT -Treating for UTI with Macrobid. Treating strep with amoxicillin. Patient has allergy to cephalosporin, but has tolerated penicillins. (more content not included)... [facility] 05-24-2024 History of Presen t illness Narrative This note was created using [employer]. Subjective Ratna Davies is a 43 year old female. HPI 43-year-old female presents for multiple complaints. Patient states she has been having burning with urination, suprapubic pressure on and off for couple of months. She states that she is concerned she may have a UTI. She has been taking Azo [id number] which has helped subside symptoms, but this week symptoms got worse. Patient does report she is homeless, is difficult for her to get a ride to the doctor's office. She denies any fevers, abdominal pain, back pain, vomiting or diarrhea. She does report urinary urgency, frequency, suprapubic pressure and burning with urination. Patient has had a little bit of vaginal discharge. No vaginal itching or vaginal pain. No new rash. Patient states that she would like tested for STDs as well. She states that she has been having vaginal intercourse with a new partner and has also been having oral sex with a different partner. No concern for . Patient states that she has had a sore throat for the past week or so. She states that she was exposed to strep. She is also concerned about possible STD in the throat as noted above. No fevers. She has had a little bit of runny nose. No cough. No chest pain or shortness of breath. Still able to eat and drink. No other complaint. 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 LIDOCAINE VISCOUS 2 % solution Take 5 mL by mouth four times a day as needed for pain. (Patient not taking: Reported on 12/21/2023) FAMILY HISTORY Problem Relation Age of Onset Thyroid Mother Asthma Mother Alcohol/Drug Mother Alcohol/Drug Father Diabetes Father Psychiatry Father Blood Disease Father Hepatitis C Asthma Father Asthma Brother Alcohol abuse Brother Social History Tobacco Use Smoking status: Former Types: Cigarettes Quit date: 09/06/2003 Years since quittin.7 Smokeless tobacco: Never Vaping Use Vaping Use: current everyday user Substances: Nicotine Substance Use Topics Alcohol use: Yes Comment: Seldom Review of Systems Constitutional: Negative for chills and fever. HENT: Positive for sore throat. Negative for congestion and ear pain. Respiratory: Negative for cough and shortness of breath. Cardiovascular: Negative for chest pain. Gastrointestinal: Negative for abdominal pain, diarrhea and vomiting. Genitourinary: Positive for dysuria, frequency, urgency and vaginal discharge. Negative for vaginal bleeding and vaginal pain. Objective BP 122/72 Pulse 104 Temp 37.1 C (98.7 F) Resp 16 Wt 66.1 kg (145 lb 11.6 oz) LMP 08/02/2023 SpO2 99% BMI 25.21 kg/m Physical Exam Vitals and nursing note reviewed. Constitutional: General: She is not in acute distress. Appearance: Normal appearance. She is not toxic-appearing. HENT: Right Ear: Tympanic membrane and ear canal normal. Left Ear: Tympanic membrane and ear canal normal. Nose: Nose normal. Mouth/Throat: Mouth: Mucous membranes are moist. Pharynx: Uvula midline. Posterior oropharyngeal erythema present. Tonsils: No tonsillar exudate or tonsillar abscesses. 2+ on the right. 2+ on the left. Eyes: Conjunctiva/sclera: Conjunctivae normal. Cardiovascular: Rate and Rhythm: Normal rate and regular rhythm. Pulmonary: Effort: Pulmonary effort is normal. Breath sounds: Normal breath sounds. Genitourinary: Comments: Deferred by patient Skin: General: Skin is warm and dry. Neurological: Mental Status: She is alert. Assessment and Plan ASSESSMENT/PLAN: 1. Burning with urination - ICD9: 788.1, ICD10: R30.0 (primary diagnosis) acute - UA positive for fany esterase, hematuria, proteinuria, and nitrates. - On AZO - Send urine for culture - Begin treatment with Macrobid 100 mg BID for 5 days - Patient education for prevention given - UA DIP, URINE (POC) - URINE CULTURE - GONORRHEA/CHLAMYDIA NAAT - CATHY/TRICHOMONAS NAAT - BACTERIAL VAGINOSIS NAAT -Treating for UTI with Macrobid. Treating strep with amoxicillin. Patient has allergy to cephalosporin, but has tolerated penicillins. -Please contact patient via MyChart if any swabs come back positive and treat accordingly. 2. Sore throat - ICD9: 462, ICD10: J02.9 - suspect strep - Group A strep molecular testing positive - Amoxicillin for 10 days. - Discussed supportive care treatment with fluids, rest and analgesia. - STREP A MOLECULAR (POC) - GONORRHEA/CHLAMYDIA NAAT-please treat if positive. 3. Strep pharyngitis - ICD9: 034.0, ICD10: J02.0 - suspect strep - Group A strep molecular testing positive - Amoxicillin for 10 days. - Discussed supportive care treatment with fluids, rest and analgesia. Diagnosis and treatment plan were discussed and questions were answered to the patient's satisfaction. Pt acknowledged understanding of concepts and follow up plan. Specific signs and symptoms that would indicate the need for higher level of care were discussed in detail warranting prompt ER evaluation. RUFINA Lilly documented in this encounter [facility] 12-21-2023 History of Presen t illness Narrative Subjective HPI Nontoxic-appearing female presents urgent care chief complaint dental pain. Duration of symptoms 8 days. Associate symptoms dental infection. History of dental infections this feels similar. Has been using NSAIDs this is helped some with the pain. Pain is exacerbated by hot and cold foods eating. Has not used any antibiotics recently. No difficulty swelling in his secretion decreased range of motion of neck trismus pain of floor of mouth fever body aches chills nausea vomiting abdominal pain change in bowel habits. Past medical history prescription medications allergies reviewed. Denies chance of last menstrual cycle was last week. 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 acetaminophen (TYLENOL) 325 mg tablet Take 1-2 tablets by mouth every 4 hours as needed for pain for up to 7 days. naproxen (NAPROSYN) 500 mg tablet Take 1 tablet by mouth two times a day as needed for pain for up to 14 days. LIDOCAINE VISCOUS 2 % solution Take 5 mL by mouth four times a day as needed for pain. (Patient not taking: Reported on 12/21/2023) FAMILY HISTORY Problem Relation Age of Onset Thyroid Mother Asthma Mother Alcohol/Drug Mother Alcohol/Drug Father Diabetes Father Psychiatry Father Blood Disease Father Hepatitis C Asthma Father Asthma Brother Alcohol abuse Brother Social History Tobacco Use Smoking status: Former Types: Cigarettes Quit date: 09/06/2003 Years since quittin.3 Smokeless tobacco: Never Vaping Use Vaping Use: current everyday user Substances: Nicotine Substance Use Topics Alcohol use: Yes Comment: Seldom BP 153/95 Pulse 95 Temp 36.5 C (97.7 F) Resp 18 Wt 66.7 kg (147 lb) LMP 08/02/2023 SpO2 100% BMI 25.43 kg/m Review of Systems Constitutional: Negative for chills, fever and malaise/fatigue. HENT: Negative for congestion, ear discharge, ear pain, sinus pain and sore throat. Eyes: Negative for blurred vision, pain, discharge and redness. Respiratory: Negative for cough, hemoptysis, sputum production, shortness of breath, wheezing and stridor. Cardiovascular: Negative for chest pain. Gastrointestinal: Negative for abdominal pain, diarrhea, nausea and vomiting. Musculoskeletal: Negative for myalgias. Skin: Negative for itching and rash. Neurological: Negative for dizziness and headaches. Objective Physical Exam Constitutional: General: She is not in acute distress. Appearance: She is not diaphoretic. HENT: Head: Normocephalic. Jaw: No trismus, tenderness, swelling or pain on movement. Mouth/Throat: Mouth: Mucous membranes are moist. Dentition: Abnormal dentition. Dental tenderness and dental caries present. No dental abscesses. Pharynx: Oropharynx is clear. Uvula midline. No pharyngeal swelling, oropharyngeal exudate, posterior oropharyngeal erythema or uvula swelling. Comments: No elevation of floor of mouth. Mandible line clear. No swelling or erythema of neck noted. No trismus. Eyes: Conjunctiva/sclera: Conjunctivae normal. Pupils: Pupils are equal, round, and reactive to light. Cardiovascular: Rate and Rhythm: Normal rate and regular rhythm. Heart sounds: Normal heart sounds. Pulmonary: Effort: Pulmonary effort is normal. No tachypnea, accessory muscle usage or respiratory distress. Breath sounds: Normal breath sounds. No stridor. No wheezing, rhonchi or rales. Abdominal: General: There is no distension. Palpations: Abdomen is soft. Tenderness: There is no abdominal tenderness. There is no guarding or rebound. Musculoskeletal: Cervical back: Normal range of motion and neck supple. No edema, erythema, rigidity or tenderness. No pain with movement. Normal range of motion. Lymphadenopathy: Cervical: No cervical adenopathy. Skin: General: Skin is warm and dry. Neurological: Mental Status: She is alert and oriented to person, place, and time. ASSESSMENT/PLAN: 1. Dental infection - ICD9: 522.4, ICD10: K04.7 Diagnosed with dental infection. No evidence of deep space infection. Placed on amoxicillin. Will take with NSAIDs and Tylenol as needed for pain management. Patient was educated on supportive therapies. Patient will follow up with primary care provider as needed. Patient was instructed to immediately proceed to emergency room for any new, worsening, or symptoms lasting longer than anticipated. The patient's clinical presentation is otherwise unremarkable at this time. Based on exam and clinical finding, the patient is stable for discharge. Plan of care was discussed with patient. Patient verbalizes understanding and agrees to plan of care. This note was generated using [employer] software. It may contain errors in wording, punctuation, or spelling. Naun Moreno APRN.COMMUNICATIONS TECHNOLOGIST documented in this encounter [facility] 08-14-2023 Miscellaneous Notes Patient notified of results, verbalizes understanding of instructions. Arleen Multani RN Left message for patient to call office. Sarah Rae RN BV positive. To treat with Flagyl 500mg PO BID for 7 days. 1) No alcohol during treatment and for 24 hours after last dose. 2) No intercourse during treatment. 3) Probiotic by mouth once daily for 30 days or as needed. Hannah Fragoso APRN.CNP documented in this encounter [facility] 08-11-2023 History of Presen t illness Narrative Ratna Davies is a 42 year old female who presents for vaginal discharge and odor for 1 week(s). Vaginal discharge: scant amount, foul smelling, and thin. Itching: Some Dyspareunia: No Fever/chills: No Abdominal pain: No Bladder: Negative for dysuria or frequency Bowel: No blood in stool, pain with BM, tarry stool, persistent diarrhea or constipation Any new sexual partners or concern for STD exposure: Yes Any history of STDs: None Does your partner have any new complaints: No Are you currently taking any medications to treat vaginitis: No Do you use feminine sprays, douches or deodorants: No Past medical, surgical, social history, medications and allergies reviewed and updated. OBJECTIVE: Wt 166 lb 6.4 oz (75.5kg) LMP 08/02/2023 GENERAL: Well developed, well nourished in no apparent distress ABDOMEN: soft, non-tender, and no masses PELVIC: external genitalia normal, normal Bartholin's glands, urethra, Wyboo's glands, no vulvar lesions, no cervical lesions, good vaginal support, physiologic discharge present, normal appearing perineal body and perianal region ASSESSMENT/PLAN: 1. Vaginal irritation - ICD9: 623.9, ICD10: N89.8 (primary diagnosis) - BACTERIAL VAGINOSIS NAAT - GONORRHEA/CHLAMYDIA NAAT 2. Screen for STD (sexually transmitted disease) - ICD9: V74.5, ICD10: Z11.3 - CATHY/TRICHOMONAS NAAT Will notify patient of test results. Recommended boric acid suppositories Hannah Fragoso APRN.CNP Medical Decision Making: Problems: Moderate: New problem with uncertain prognosis Data: Unique test(s) ordered: 3+ Risk: Low: Low risk from testing/treatment Medical Decision Making Level: 4 - Moderate documented in this encounter [facility] 05-16-2023 Miscellaneous Notes May 17, 2023 PID: [id number] Ratna Davies [address] [facility] [address] [place] [address] Dear Ms. Davies, We are pleased to inform you that the results of your recent breast imaging exam on 05/15/2023 are normal. Your mammogram demonstrates that you have dense breast tissue, which could hide abnormalities. Dense breast tissue, in and of itself, is a relatively common condition. Therefore, this information is not provided to cause undue concern; rather, it is to raise your awareness and promote discussion with your health care provider regarding the presence of dense breast tissue in addition to other risk factors. Early detection of cancer is very important. We also understand recommendations regarding breast cancer screening are controversial. Please discuss with your primary care provider which strategy is best for you and whether a mammogram is right for you. Your imaging studies and report will be kept on file at [facility] as part of your permanent medical record and are available for your continuing care. Thank you for allowing us to help in meeting your health care needs. Sincerely, Dr. Haas Interpreting Radiologist 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 Ratna is a 42 year old who presents for an annual gynecologic exam with complaints, vaginal discharge and vaginal odor . Menses: cycles every 25-30 days and 7 days of flow. Contraception: Essure HPV vaccine: No Last Pap: 01/19/2010 normal HPV: N/A History of abnormal pap: No Last mammogram: never Sexually active: Yes History of STDS: None Patient concerns for STD exposure: Yes: new partner Pain with intercourse: No Postcoital bleeding: No OB History T3 L3 SAB0 IAB0 Ectopic0 Multiple0 Live Births2 Manager Hris History LMP: 04/21/2023, Having periods Age at Menarche: Age at First : Age at Menopause: Manager Hris History Comments: Sexual Activity: Yes; Male; Essure Contraception: Surgical PAST MEDICAL HISTORY Diagnosis Date Dysplastic colon polyp Intrinsic asthma, unspecified PAST SURGICAL HISTORY Procedure Laterality Date COLONOSCOPY FLX DX W/COLLJ SPEC WHEN PFRMD N/A 01/06/2017 COLONOSCOPY FLX DX W/COLLJ SPEC WHEN PFRMD 12/03/2019 Colonoscopy ESOPHAGOGASTRODUODENOSCOPY TRANSORAL DIAGNOSTIC N/A 01/06/2017 EUA 12/04/2019 HEMORRHOIDECTOMY 12/04/2019 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 09/04/09 Mirena LAPAROSCOPIC TUBAL LIGATION/RING/CLIP 05/04/11 LAPS SURG CHOLECYSTECTOMY W/CHOLANGIOGRAPHY 06/28/11 normal [facility] FAMILY HISTORY Problem Relation Age of Onset Thyroid Mother Asthma Mother Alcohol/Drug Mother Alcohol/Drug Father Diabetes Father Psychiatry Father Blood Disease Father Hepatitis C Asthma Father Asthma Brother Alcohol abuse Brother SOCIAL HISTORY Social History Tobacco Use Smoking status: Former Types: Cigarettes Quit date: 09/06/2003 Years since quittin.6 Smokeless tobacco: Never Vaping Use Vaping Use: Never used Substance Use Topics Alcohol use: Yes Comment: Seldom REVIEW OF SYSTEMS Abdomen: No abdominal pain, nausea, vomiting, diarrhea, or constipation. No bloating, early satiety, indigestion, or increased flatulence. Bladder: No dysuria, gross hematuria, urinary frequency, urinary urgency, or incontinence. Breast: No breast lumps, nipple d/c, overlying skin changes, redness or skin retraction. Allergies and current medication updated:Yes EXAM: BP 120/80 Ht 5' 3.75 (1.62m) Wt 166 lb 6.4 oz (75.5kg) LMP 04/21/2023 BMI 28.80 kg/(m^2). GENERAL: pleasant, female in no apparent distress HEENT: Normocephalic, atraumatic, mucus membranes moist, and no lesions NECK: Supple, full range of motion, no adenopathy, and thyroid normal DERMATOLOGY: Normal, without lesions, non-icteric, and non-hirsute BREAST: soft, non-tender, symmetric, no dominant mass, normal nipple-areolar complex, no lymphadenopathy, and no nipple discharge CHEST: Normal inspiratory effort ABDOMEN: soft, non-tender, and no masses PELVIC: external genitalia normal, normal Bartholin's glands, urethra, Wyboo's glands, no vulvar lesions, no cervical lesions, good vaginal support, normal appearing perineal body and perianal region, large amount of yellow thin vaginal discharge BIMANUAL: uterus normal size, shape and consistency, no adnexal masses, and non-tender RECTOVAGINAL: deferred. NEURO: alert and oriented x3,exam grossly non-focal EXTREMITIES: normal ASSESSMENT/PLAN: 1) Health maintenance: Pap done with HPV. Mammogram ordered. Nutrition, exercise and routine health maintenance exams reviewed. Calcium/Vitamin D supplementation information provided. 2) Contraception: Essure. Contraceptive options reviewed and information provided. 3) STD screening: Accepted STD check for Gonorrhea and Chlamydia. 4) Follow up one year or sooner as needed 5) BV/yeast/trich ordered Hannah Fragoso APRN.CHAVA documented in this encounter [facility] 04-18-2022 History of Presen t illness Narrative Ratna Davies is a 41 year old female who presents for problem visit Pelvic pain for several month(s). HPI: pressure on the rectum area feels like a marble sitting there Denies any vaginal issue or STD concerns. OB History T3 L3 SAB0 IAB0 Ectopic0 Multiple0 Live Births2 Manager Hris History LMP: 11/20/2019 (Approximate), Having periods Age at Menarche: Age at First : Age at Menopause: Manager Hris History Comments: Sexual Activity: Yes; Male; Essure Contraception: Surgical PAST MEDICAL HISTORY Diagnosis Date Dysplastic colon polyp Intrinsic asthma, unspecified PAST SURGICAL HISTORY Procedure Laterality Date COLONOSCOPY FLX DX W/COLLJ SPEC WHEN PFRMD N/A 01/06/2017 COLONOSCOPY FLX DX W/COLLJ SPEC WHEN PFRMD 12/03/2019 Colonoscopy ESOPHAGOGASTRODUODENOSCOPY TRANSORAL DIAGNOSTIC N/A 01/06/2017 EUA 12/04/2019 HEMORRHOIDECTOMY 12/04/2019 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 09/04/09 Mirena LAPAROSCOPIC TUBAL LIGATION/RING/CLIP 05/04/11 LAPS SURG CHOLECYSTECTOMY W/CHOLANGIOGRAPHY 06/28/11 normal [facility]OC FAMILY HISTORY Problem Relation Age of Onset Thyroid Mother Asthma Mother Alcohol/Drug Mother Alcohol/Drug Father Diabetes Father Psychiatry Father Blood Disease Father Hepatitis C Asthma Father Asthma Brother Social History Tobacco Use Smoking status: Former Smoker Quit date: 09/06/2003 Years since quittin.6 Smokeless tobacco: Never Used Vaping Use Vaping Use: Never used Substance Use Topics Alcohol use: Yes Comment: Seldom Drug use: No Current Outpatient Medications Medication Sig albuterol (PROVENTIL) 2.5 mg /3 mL (0.083 %) nebulizer solution Use 3 mL via nebulizer every 4 hours as needed for Wheezing/Shortness of Breath. Use over 5-15minutes. (Patient not taking: Reported on 04/18/2022 ) No current facility-administered medications for this visit. Allergies As of Date: 04/18/2022 Allergen Noted Reaction ARTIFICIAL STRAWBERRY FLAVORING [*02/10/2011 Rash CECLOR [CEFACLOR] 01/03/2006 Rash Fully Assessed 04/18/2022 REVIEW OF SYSTEMS Abdomen: No bloating, early satiety, indigestion, or increased flatulence. No abdominal pain, nausea, vomiting, diarrhea, or constipation. Bladder: No dysuria, gross hematuria, urinary frequency, urinary urgency, or incontinence. Expanded ROS: N/A Allergies and current medication updated:Yes EXAM: LMP 11/20/2019 GENERAL: pleasant, female in no apparent distress HEENT: Normocephalic, atraumatic, mucus membranes moist and no lesions CHEST: Normal inspiratory effort PELVIC: external genitalia normal, normal Bartholin's glands, urethra, Wyboo's glands, no vulvar lesions, no cervical lesions, good vaginal support, physiologic discharge present, normal appearing perineal body and perianal region BIMANUAL: uterus normal size, shape and consistency, no adnexal masses and Moderate tenderness in the left quadrant NEURO: alert and oriented x3,exam grossly non-focal EXTREMITIES: normal ASSESSMENT/PLAN: 1. Pelvic pain in female - ICD9: 625.9, ICD10: R10.2 - US FEMALE PELVIS TRANSVAG Hannah Fragoso APRN.CNP *Patient states that she is under a lot of stress due to financial issues and needing to look for a new apartment. She states that does not always for her, but her kids are fed and taking care of. Offered to have social work call her to see if there was any resources available patient declines at this time. Medical Decision Making: Problems: Moderate: New problem with uncertain prognosis Data: Unique test(s) ordered: 1 Risk: Low: Low risk from testing/treatment Medical Decision Making Level: 3 - Low documented in this encounter [facility] 01-14-2022 History of Presen t illness Narrative Radiology Service Progress Note PATIENT NAME: Ratna Davies DATE OF SERVICE: January 14, 2022 TIME: 3:52 PM PATIENT IDENTITY VERIFICATION COMPLETED USING TWO (2) IDENTIFIERS: Name and Date of confirmed by patient verbally. FALL SCREENING: Has the patient had 2 falls in the last year or 1 fall with injury or currently using an Ambulatory Assistive Device (Walker, Cane, Wheelchair, Crutches, etc.)? No PATIENT GENDER DATA: Female. status: : No status: NO. PATIENT RELEVANT IMPLANT DATA REVIEWED: Yes RADIOLOGY DEPARTMENT: General X-ray: Exam(s) Completed: Lower Extremity X-Ray(s): Ankle, Right and Wt. Bearing PERIPHERAL IV DATA: Not applicable SIGNED BY: RT Maxine(R) January 14, 2022 3:52 PM documented in this encounter [facility] 06-24-2011 History of Past i llness Narrative Problem Noted Date Resolved Date Calculus of gallbladder with out mention of cholecystitis or obstruction 06/24/2011 10/10/2016 Supervision of other high-risk (V23.89) 07/01/2010 10/10/2016 Mild hyperemesis gravidarum, antepartum 07/01/20 10 10/10/2016 Supervision of other normal 01/17/2006 07/01/2010 documented as of this encounter (statuses as of 04/18/2022) [facility] History of Past illness Narrative* Problem Noted Date Resolved Date Calculus of gallbladder with out mention of cholecystitis or obstruction 06/24/2011 10/10/2016 Supervision of other high-risk (V23.89) 07/01/2010 10/10/2016 Mild hyperemesis gravidarum, antepartum 07/01/20 10 10/10/2016 Supervision of other normal 01/17/2006 07/01/2010 documented as of this encounter (statuses as of 05/02/2023) [facility] History of Past illness Narrative* Problem Noted Date Diagnosed Date Resolved Date Calculus of gallbladder with out mention of cholecystitis or obstruction 06/24/2011 10/10/2016 Supervision of other high-ri sk (V23.89) 07/01/2010 10/10/2016 Mild hyperemesis gravidarum, antepartum 07/01/2010 10/10/2016 Supervision of other normal 01/17/2006 07/01/2010 documented as of this encounter (statuses as of 05/18/2023) [facility] History of Past illness Narrative* Problem Noted Date Diagnosed Date Resolved Date Calculus of gallbladder with out mention of cholecystitis or obstruction 06/24/2011 10/10/2016 Supervision of other high-ri sk (V23.89) 07/01/2010 10/10/2016 MILD HYPEREMESIS-ANTEPAR 07/01/201003/2016 SUPERVIS OTHER NORMAL PREG 01/17/2006 0 07/01/2010 documented as of this encounter (statuses as of 07/27/2023) [facility] History of Past illness Narrative* Problem Noted Date Diagnosed Date Resolved Date Calculus of gallbladder with out mention of cholecystitis or obstruction 06/24/2011 10/10/2016 Supervision of other high-ri sk (V23.89) 07/01/2010 10/10/2016 Mild hyperemesis gravidarum, antepartum 07/01/2010 10/10/2016 Supervision of other normal 01/17/2006 07/01/2010 documented as of this encounter (statuses as of 08/12/2023) [facility] History of Past illness Narrative* Problem Noted Date Diagnosed Date Resolved Date Calculus of gallbladder with out mention of cholecystitis or obstruction 06/24/2011 10/10/2016 Supervision of other high-ri sk (V23.89) 07/01/2010 10/10/2016 Mild hyperemesis gravidarum, antepartum 07/01/2010 10/10/2016 Supervision of other normal 01/17/2006 07/01/2010 documented as of this encounter (statuses as of 08/15/2023) [facility] History of Past illness Narrative* Problem Noted Date Diagnosed Date Resolved Date Calculus of gallbladder with out mention of cholecystitis or obstruction 06/24/2011 10/10/2016 Supervision of other high-ri sk (V23.89) 07/01/2010 10/10/2016 Mild hyperemesis gravidarum, antepartum 07/01/2010 10/10/2016 Supervision of other normal 01/17/2006 07/01/2010 documented as of this encounter (statuses as of 12/21/2023) [facility] Pelvic pain in female- Primary Unspecified symptom associated with female genital organs [facility] Encounter for gynecological examination (general) (routine) without abnormal findings- Primary Screening for cervical cancer Screening for malignant neoplasm of the cervix Encounter for screening for human papillomavirus (HPV) Special screening examination for human papillomavirus (HPV) Encounter for screening mammogram for breast cancer Vaginal discharge Leukorrhea, not specified as infective Vaginal odor Unspecified symptom associated with female genital organs [facility] Diagnosis Vaginal irritation- Primary Unspecified noninflammatory disorder of vagina Screen for STD (sexually transmitted disease) Screening examination for venereal disease [facility] Diagnosis Dental infection- Primary Acute apical periodontitis of pulpal origin [facility] Diagnosis Burning with urination- Primary Dysuria Sore throat Acute pharyngitis Strep pharyngitis Streptococcal sore throat [facility] Diagnosis Right ankle pain, unspecified chronicity [facility] Diagnosis Vaginal discharge- Primary Leukorrhea, not specified as infective Vaginal odor Unspecified symptom associated with female genital organs documented in this encounter [facility]* Diagnosis Screen for STD (sexually transmitted disease)- Primary Screening examination for venereal disease Vaginal discharge Leukorrhea, not specified as infective documented in this encounter [facility] note* Diagnosis Bacterial vaginosis- Primary Vaginitis and vulvovaginitis, unspecified [facility] Diagnostic Procedure Only (Routine) - Authorized Specialty Diagnoses / Procedures Referred By Contac t Referred To Contact US IMAGING Diagnoses Pelvic pain in female Procedures US FEMALE PELVIS TRANSVAG US TRANSVAGINAL Hannah Fragoso APRN.CNP [address] [place] [address] Us Imaging Referral ID Status Reason Start Date Expiration Date Visits Requested Visits Authorized [id number] Authorized Auto-Generat ed Referral 04/18/2022 05/18/2023 1 1 [facility] for referral (narrative)* Diagnostic Procedure Only (Routine) - Authorized Specialty Diagnoses / Procedures Referred By Ant t Referred To Contact BR IMAGING Diagnoses Encounter for screening mammogram for breast cancer Procedures MIKE SCREENING SCREENING MAMMOGRAPHY BI 2-VIEW BREAST INC CAD Hannah Fragoso APRN.CNP [address] [place] [address] [facility] Imaging [address] [place] [address] Referral ID Status Reason Start Date Expiration Date Visits Requested Visits Authorized [id number] Authorized Auto-Generat ed Referral 05/02/2023 05/31/2024 1 1 [facility] for referral (narrative)* Diagnostic Procedure Only (Urgent) - Closed Specialty Diagnoses / Procedures Referred By Contac t Referred To Contact XR IMAGING Diagnoses Right ankle pain, unspecified chronicity Procedures XR ANKLE GENERAL 3V AP/LAT/OBL RIGHT RADEX ANKLE COMPLETE MINIMUM 3 VIEWS Marixa Vega APRN.COMMUNICATIONS TECHNOLOGIST [address] [place] [address] [place] [address] Referral ID Status Reason Start Date Expiration Date V isits Requested Visits Authorized [id number] Closed Auto-Generate d Referral 01/14/2022 02/13/2023 1 1 [facility] for visit Narrative* Diagnostic Procedure Only (Urgent) - Closed Specialty Diagnoses / Procedures Referred By Contac t Referred To Contact XR IMAGING Diagnoses Right ankle pain, unspecified chronicity Procedures XR ANKLE GENERAL 3V AP/LAT/OBL RIGHT RADEX ANKLE COMPLETE MINIMUM 3 VIEWS Marixa Vega APRN.COMMUNICATIONS TECHNOLOGIST [address] [place] [address] [place] [address] Referral ID Status Reason Start Date Expiration Date V isits Requested Visits Authorized [id number] Closed Auto-Generate d Referral 01/14/2022 02/13/2023 1 1 [facility] Summary Purpose Family History No Family History Records FoundNo Family History Records Found Advance Directives No Advanced Directives Records FoundDocuments on File Type Date Recorded 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 Advance Directive(s) 12/04/2019 11:14 AM Advance Directive(s) 12/03/2019 9:47 AM Advance Directive(s) 12/02/2019 9:21 AM Advance Directive(s) 12/02/2019 12:19 PM Advance Directive(s) 12/02/2019 1:48 PM Advance Directive(s) 12/02/2019 1:54 PM Advance Directive(s) 01/06/2017 1:12 PM Additional Source Comments INFORMATION SOURCE (unrecogn ized section and content) DATE CREATED AUTHOR 12/05/2019 [facility] DATE CREATED AUTHOR AUTHOR'S ORGANIZ ATION 05/08/2025 [facility] Source Comments (unrecognize d section and content) In the event this informatio n is protected by the Federal Confidentiality of Alcohol and Drug Abuse Patient Records regulations: The Federal rules restrict any use of the information to criminally investigate or prosecute any alcohol or drug abuse patient.[facility] the event this information is protected by the Federal Confidentiality of Alcohol and Drug Abuse Patient Records regulations: The Federal rules restrict any use of the information to criminally investigate or prosecute any alcohol or drug abuse patient.[facility] the event this information is protected by the Federal Confidentiality of Alcohol and Drug Abuse Patient Records regulations: The Federal rules restrict any use of the information to criminally investigate or prosecute any alcohol or drug abuse patient.[facility] the event this information is protected by the Federal Confidentiality of Alcohol and Drug Abuse Patient Records regulations: The Federal rules restrict any use of the information to criminally investigate or prosecute any alcohol or drug abuse patient.[facility] the event this information is protected by the Federal Confidentiality of Alcohol and Drug Abuse Patient Records regulations: The Federal rules restrict any use of the information to criminally investigate or prosecute any alcohol or drug abuse patient.[facility] the event this information is protected by the Federal Confidentiality of Alcohol and Drug Abuse Patient Records regulations: The Federal rules restrict any use of the information to criminally investigate or prosecute any alcohol or drug abuse patient.[facility] Center[facility] the event this information is protected by the Federal Confidentiality of Alcohol and Drug Abuse Patient Records regulations: The Federal rules restrict any use of the information to criminally investigate or prosecute any alcohol or drug abuse patient.[facility] Center[facility] the event this information is protected by the Federal Confidentiality of Alcohol and Drug Abuse Patient Records regulations: The Federal rules restrict any use of the information to criminally investigate or prosecute any alcohol or drug abuse patient.[facility] Center[facility] the event this information is protected by the Federal Confidentiality of Alcohol and Drug Abuse Patient Records regulations: The Federal rules restrict any use of the information to criminally investigate or prosecute any alcohol or drug abuse patient.[facility] Center[facility] the event this information is protected by the Federal Confidentiality of Alcohol and Drug Abuse Patient Records regulations: The Federal rules restrict any use of the information to criminally investigate or prosecute any alcohol or drug abuse patient.[facility] Center[facility] the event this information is protected by the Federal Confidentiality of Alcohol and Drug Abuse Patient Records regulations: The Federal rules restrict any use of the information to criminally investigate or prosecute any alcohol or drug abuse patient.[facility] Center[facility] the event this information is protected by the Federal Confidentiality of Alcohol and Drug Abuse Patient Records regulations: The Federal rules restrict any use of the information to criminally investigate or prosecute any alcohol or drug abuse patient.[facility] Center[facility] the event this information is protected by the Federal Confidentiality of Alcohol and Drug Abuse Patient Records regulations: The Federal rules restrict any use of the information to criminally investigate or prosecute any alcohol or drug abuse patient.[facility] Center[facility] the event this information is protected by the Federal Confidentiality of Alcohol and Drug Abuse Patient Records regulations: The Federal rules restrict any use of the information to criminally investigate or prosecute any alcohol or drug abuse patient.[facility] Center[facility] the event this information is protected by the Federal Confidentiality of Alcohol and Drug Abuse Patient Records regulations: The Federal rules restrict any use of the information to criminally investigate or prosecute any alcohol or drug abuse patient.[facility] Reason for Visit (unrecogniz ed section and content) Reason Comments Abdominal Pain Reason Comments Well Woman Reason Comments Vaginal Infection Reason Comments Results Reason Comments Dental Problem L lower tooth infect ion x8 days Reason Comments STD std check, burning w ith urination on and off x 4 months Reason Comments Results Orders Reason Comments Problem Visit Reason Onset Date Comments Results 02/04/2025 Reason Onset Date Comments Results 05/07/2025 Care Teams (unrecognized sec tion and content) Technical Services Representative Relationship Specialty Start Date End Date Luca Azevedo MD [address] [place], [place] [id number] PCP - General Family Practice 09/28/10 Technical Services Representative Relationship Specialty Start Date End Date Luca Azevedo MD [address] [place], [place] [id number] PCP - General Family Medicine 09/28/10 Technical Services Representative Relationship Specialty Start Date End Date Luca Azevedo MD [address] [place], [place] [id number] PCP - General Family Medicine 09/28/10 Technical Services Representative Relationship Specialty Start Date End Date David Chiang (Hist) [facility] [address] [place] [address] PCP - General 01/16/07 09/27/10 Mikie Elaine [address] [place], [place] [id number] PCP - General 11/28/02 01/15/07 Luca Azevedo MD [address] [place], [place] [id number] PCP - General Family Medicine 09/28/10 Technical Services Representative Relationship Specialty Start Date End Date Luca Azevedo MD [address] [place], [place] [id number] PCP - General Family Medicine 09/28/10 Technical Services Representative Relationship Specialty Start Date End Date Luca Azevedo MD [address] [place], [place] [id number] PCP - General Family Medicine 09/28/10 Technical Services Representative Relationship Specialty Start Date End Date Luca Azevedo MD [address] [place] [address] PCP - General Family Medicine 09/28/10 09/04/23 FOR RECORDS PERTAINING TO PATIENTS WHO ARE OR HAVE BEEN ENROLLED IN A CHEMICAL DEPENDENCY/SUBSTANCEABUSE PROGRAM, SOME INFORMATION MAY BE OMITTED. This clinical summary was aggregated from multiple sources. Caution should be exercised in using it in the provision of clinical care. This summary normalizes information from multiple sources, and as a consequence, information in this document may materially change the coding, format and clinical context of patient data. In addition, data may be omitted in some cases. CLINICAL DECISIONS SHOULD BE BASED ON THE PRIMARY CLINICAL RECORDS. [employer] [facility]. provides no warranty or guarantee of the accuracy or completeness of information in this document.
[2025-06-15 20:30] VITALS: BP 144/97; PULSE 67; RESP 18; TEMP 36.8; O2SAT 100
--- NOTE | 2025-06-15 20:36 | CM.ED ---
Social Work Date of referral: 06/15/25 Reason for referral: Support/resources Referred by: ED nurse Patient provided consent to social work visit. As soon as social media manager arrived, patient stated she was freezing and sleepy as patient stated she didn't sleep at all last night. Director Patient offered to go get patient some warm blankets which patient was excited about. Director Patient returned, covered patient with blankets and ED doctor arrived so social media manager left the room so patient could be examined. '' Director Patient returned to meet with patient to discuss needs/resources and patient had fallen asleep. Since patient had just recently complained of being extremely sleepy, social media manager made the decision not to wake patient. (20:36) Sarah Cowart, SENIOR UI SOFTWARE ENGINEER, VETERINARY ANATOMIST
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
[2025-06-15] MEDS: levoFLOXacin IV 750 MG/150 ML BAG 100 MG IV (21:20)
[2025-06-15 21:40] LABS: Hematocrit 41.1 % (37-47); Hemoglobin 14.2 g/dL (12.0-15.0); Immature Granulocytes Count 0.020 X10^3/uL (0.0-0.0); Mean Corp Hgb Conc 34.5 g/dL (32-36); Mean Corpuscular Volume 87.4 fL (81-99); Mean Platelet Vol. 10.7 fl (6.2-12.0); NRBC Flagged by Analyzer 0 % (0-5); Platelet Count 221 K/mm3 (150-450); RBC Distribution Width CV 13.4 % (11.6-14.6); RBC Distribution Width SD 42.8 fl (35.1-43.9); Red Blood Count 4.70 M/mm3 (4.2-5.4); White Blood Count 11.8 K/mm3 (4.4-11.0)
[2025-06-15 22:00] VITALS: BP 146/94; PULSE 89; RESP 18; TEMP 36.8; O2SAT 100
[2025-06-15 22:09] LABS: Anion Gap 10 (5-15); BUN 8 mg/dL (4-19); BUN/Creat Ratio 11.4 RATIO (10-20); Calcium,Total 8.9 mg/dL (7.6-11.0); Carbon Dioxide 24.1 mmol/L (21.0-32.0); Chloride 104 mmol/L (98-108); Estimated Creatinine Clearance 94.53 ml/min (50-250); Glucose 94 mg/dL (70-99); Potassium 4.0 mmol/L (3.3-5.1)
[2025-06-15 23:00] VITALS: BP 130/98; PULSE 79; RESP 18; TEMP 36.7; O2SAT 100
== END 2025-06-15 23:21 | disposition home or self-care (01) ==
PROVIDERS: Emergency Provider Emergency Medicine; Referring Provider Emergency Medicine; Visit Provider Emergency Medicine
DX: L03.116 Cellulitis of left lower limb (principal); S91.032A Puncture wound without foreign body, left ankle, initial encounter; F17.210 Nicotine dependence, cigarettes, uncomplicated; F17.290 Nicotine dependence, other tobacco product, uncomplicated; W19.XXXA Unspecified fall, initial encounter
CPT/HCPCS: 73610; 80048; 85025; 90715; 96365; 96366; 99284; A4216

== ENCOUNTER 2025-07-24 12:02 | Emergency (ER) | payer MEDICAID, SELFPAY ==
[2025-07-24 12:03] VITALS: BP 140/99; PULSE 88; RESP 14; TEMP 36.6; O2SAT 98
[2025-07-24 12:05] VITALS: BP 140/99; PULSE 88; RESP 14; TEMP 36.6; O2SAT 98
[2025-07-24 12:57] VITALS: BMI 32.3
[2025-07-24 14:03] VITALS: BP 134/65; PULSE 92; RESP 12; O2SAT 98
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
[2025-07-24 14:47] VITALS: BP 145/100; PULSE 90; RESP 16; TEMP 36.7; O2SAT 100
== END 2025-07-24 14:48 | disposition home or self-care (01) ==
PROVIDERS: Emergency Provider Emergency Medicine; Visit Provider Emergency Medicine
DX: L03.116 Cellulitis of left lower limb (principal); F17.210 Nicotine dependence, cigarettes, uncomplicated; F17.290 Nicotine dependence, other tobacco product, uncomplicated
CPT/HCPCS: 99283